=== PATIENT | male | born 1955 | race Caucasian/White ===

== ENCOUNTER 2019-08-28 12:08 | Outpatient (CLI) | payer BC, SELFPAY ==
--- NOTE | 2019-08-28 12:15 | ECHO_ITS ---
Patient Info Name: Binh Masters Age: 64 years : 1955 Gender: Male Ht: 72 in Wt: 270 lbs BSA: 2.54 m2 HR: 86 bpm BP: 169 / 96 mmHg Heart Rhythm: Sinus Rhythm Technical Quality: Fair Exam Date: 08/28/2019 12:20 PM Exam Location: [facility] Patient Status: Outpatient Admit Date: 08/28/2019 Staff Ordering Physician: Sigifredo Carter MD Meal Temperer: Mayda Fortune RDCS Attending Provider: Sigifredo Carter MD Referring Physician: Emma BROWN; Exam Type: CA echo doppler color flow Study Info Indications R01.1 - Cardiac murmur, unspecified Complete two-dimensional, color flow and Doppler transthoracic echocardiogram is performed. Strain analysis performed. History/Risk Factors Hypertension: Yes Dyslipidemia: Yes Congenital Heart Disease (CHD): No Peripheral Arterial Disease (PAD): No Myocardial Infarction (TN): No Chronic Lung Disease: No Obesity: Yes Renal Disease: No Coronary Artery Disease (CAD) No Congestive Heart Failure (CHF): No Cardiomyopathy/LV Systolic Dysfunction: No Diabetes Mellitus: No COPD: No Tobacco Use: Former Cerebrovascular Disease: No Family History: Coronary Artery Disease Deep Vein Thrombosis (DVT): None Dialysis: None Frailty Scale (CSHA): 3: Managing Well Cardiac Arrest: No Prior Interventions Pacemaker: No PCI: No CABG: No Valve Surgery: No ICD: No PV Intervention: None Heart Transplant: No Summary 1. Left ventricular chamber dimension is normal. 2. Left ventricular systolic function is normal, estimated at 55-60%. 3. Left ventricular septal wall motion is abnormal with septal motion related to bundle branch block. 4. The left ventricular diastolic function is grade I diastolic dysfunction. 5. E/e' 14 is mildly elevated. 6. Left atrial chamber dimension is mildly enlarged. 7. The aortic valve is not well visualized. 8. Cannot determine number of aortic valve leaflets. 9. There is mild aortic valve stenosis based on a peak velocity of 237 cm/s, mean gradient of 12 mmHg, and aortic valve area of 1.7 cm2. 10. There is severe aortic valve sclerosis. 11. There is mild aortic valve regurgitation. 12. There is trace mitral valve regurgitation. 13. There is trace pulmonic regurgitation. Left Ventricle E/e' 14 is mildly elevated. Left ventricular chamber dimension is normal. Left ventricular systolic function is normal, estimated at 55-60%. Left ventricular septal wall motion is abnormal with septal motion related to bundle branch block. The left ventricular diastolic function is grade I diastolic dysfunction. Right Ventricle Right ventricular chamber dimension is normal. Right ventricular systolic function is normal. Left Atria Left atrial chamber dimension is mildly enlarged. Right Atria Right atrial chamber dimension is normal. Aortic Valve There is mild aortic valve stenosis based on a peak velocity of 237 cm/s, mean gradient of 12 mmHg, and aortic valve area of 1.7 cm2. Cannot determine number of aortic valve leaflets. The aortic valve is not well visualized. There is severe aortic valve sclerosis. There is mild aortic valve regurgitation. Pulmonic Valve There is trace pulmonic regurgitation. Mitral Valve There is no mitral valve stenosis. There is trace mitral valve regurgitation. Tricuspid Valve There is no tricuspid valve regurgitation.
== END 2019-08-28 12:09 | disposition home or self-care (01) ==
LOC: CHSIMG 12:10
PROVIDERS: PCP Family Medicine; Visit Provider Family Medicine
DX: R01.1 Cardiac murmur, unspecified (principal)
CPT/HCPCS: 93306

== ENCOUNTER 2019-11-11 11:17 | Outpatient (CLI) | payer BC, SELFPAY ==
--- NOTE | ~2019-11-11 | XR_ITS ---
XR lumbar spine 2-3V DATE: 11/11/2019 11:44 INDICATION: Low back pain for 10 days, radiating to right leg TECHNIQUE: AP, lateral, coned lateral lumbosacral views COMPARISON: 09/11/2006 lumbar spine FINDINGS: There is degenerative spurring of the lower thoracic spine. There is degenerative spurring throughout the lumbar and lumbosacral spine. There is mild degenerativ e disc disease at L1-2, L2-3, moderate moderate degenerative disc disease at L3-4, mild degenerative disc disease at L4-5 and moderately severe degenerative disc disease and prominent anterior spurring at L5-S1. There is retrolisthesis at L5-S1. There is suspicion of primary spinal stenosis. Consider CT lumbar spine correlation. The sacroiliac joints appear normal. IMPRESSION: Multilevel degenerative disc disease, most pronounced at L5-S1 Primary spinal stenosis is suggested; consider CT lumbar spine correlation Reviewed, dictated and finalized at location A.
== END 2019-11-11 11:18 | disposition home or self-care (01) ==
PROVIDERS: PCP Family Medicine; Visit Provider Family Medicine
DX: M54.5 Low back pain (principal)
CPT/HCPCS: 72100

== ENCOUNTER 2019-11-20 13:36 | Outpatient (CLI) | payer BC, SELFPAY ==
--- NOTE | ~2019-11-20 | CT_ITS ---
EXAMINATION: CT [facility] EXAM DATE: 11/20/2019 14:19 INDICATION: Right leg weakness, low back pain. TECHNIQUE: Spiral CT of the lumbar spine was performed without contrast. Axial, coronal and sagittal images were reviewed. The dose-length product (DLP) for this examination was 1334.92 mGy-cm. The exposure was tailored according to patient size (auto mA exposure control), and iterative reconstruct ion (ASIR) was used as additional dose reduction technique. There is no prior study for comparison. FINDINGS: There is 5 mm retrolisthesis L5 on S1 with moderate loss of this disc height. The vertebral bodies are otherwise aligned. Mild to moderate disc disease at the other thoracolumbar levels. There are small to moderate-sized thoracolumbar endplate osteophytes. There are no acute fractures identif ied. No spondylolysis. Paraspinal soft tissue is unremarkable. Level by level evaluation: T12-L1: Disc does not extend beyond the endplate margin. Facet arthropathy: None. Neural foraminal stenosis: No stenosis. Central canal stenosis: No stenosis. L1-L2: There is a mild diffuse disc bulge. Facet arthropathy: Mild. Neural foraminal stenosis mild bilateral: No stenosis. Central canal stenosis: No stenosis. L2-L3: There is a mild diffuse disc bulge. Facet arthropathy: Mild. Neural foraminal stenosis: Mild to moderate bilateral. Central canal stenosis: Mild. L3-L4: There is a mild to moderate diffuse disc bulge. Facet arthropathy: Moderate. Neural foraminal stenosis: Mild to moderate bilateral. Central canal stenosis: Moderate. L4-L5: There is a mild to moderate diffuse disc bulge. Facet arthropathy: Moderate to severe. Neural foraminal stenosis: Moderate bilateral, right greater than left. Central canal stenosis: Moderate to severe. L5-S1: There is a mild to moderate diffuse disc bulge. Facet arthropathy: Moderate. Neural foraminal stenosis: Moderate to severe bilateral. Central canal stenosis: Moderate. IMPRESSION: 1. L4-5 moderate to severe central canal stenosis, moderate at the 2 contiguous levels. 2. L5-S1 grade 1 retrolisthesis. Reviewed, dictated and finalized at location A. IMPRESSION: 1. L4-5 moderate to severe central canal stenosis, moderate at the 2 contiguou s levels. 2. L5-S1 grade 1 retrolisthesis.
== END 2019-11-20 13:37 | disposition home or self-care (01) ==
LOC: CHSIMG 13:36
PROVIDERS: PCP Family Medicine; Visit Provider Family Medicine
DX: M54.5 Low back pain (principal)
CPT/HCPCS: 72131

== ENCOUNTER 2023-02-27 03:08 | Day surgery (SDC) | payer OTHER, SELFPAY ==
[2023-02-01 09:38] VITALS: BMI 36.6
--- NOTE | 2023-02-23 13:13 | SUR.PREOP ---
Patient called regarding upcoming procedure. Reviewed preop instructions, appointment times, and procedure prep.
[2023-02-27 07:13] VITALS: BP 156/91; PULSE 101; RESP 20; TEMP 36.1; O2SAT 97
[2023-02-27] MEDS: LACTATED RINGERS 1,000 ML 150 ML IV CONT (07:16)
--- NOTE | 2023-02-27 07:59 | WPDANESEPPF ---
Anes - Initial Pre Proc Eval Procedure: Operation Date: 02/27/23 08:30 Proposed Procedures p Screening Colonoscopy - Luis Daniel Barth MD Date/Time: 02/27/23 07:59 Surgeon: Luis Daniel Barth MD Pre Op Diagnosis: neoplasm screening Patient Data Age: 67 Gender: M Height: 1.83 m Weight: 127.9 kg Last Vital Signs Temp 97 F L 02/27/23 07:13 Pulse 101 H 02/27/23 07:13 Resp 20 02/27/23 07:13 BP 156/91 H 02/27/23 07:13 Pulse Ox 97 02/27/23 07:13 O2 Del Method Room Air 02/27/23 07:13 Allergies Allergy/AdvReac Type Severity Reaction Status Date / Time No Known Allergies Allergy Verified 02/27/23 07:12 Home Medications Medication Instructions Recorded Confirmed Type amlodipine 10 mg tablet 10 mg PO DAILY #90 tabs 10/03/22 02/27/23 Rx fenofibrate micronized 134 mg 134 mg PO DAILY #90 caps 10/03/22 02/27/23 Rx capsule hydrochlorothiazide 25 mg tablet 25 mg PO DAILY #90 tabs 10/03/22 02/27/23 Rx metoprolol succinate 50 mg 50 mg PO DAILY #90 tabs 10/03/22 02/27/23 Rx tablet,extended release 24 hr multivitamin with minerals 1 tablet PO DAILY 02/01/23 02/27/23 History Patient hx anesthesia problems: none Family hx anesthesia problems: none Results Review: All pre-operative results and documents have been reviewed as part of the pre-operative evaluation. COUNT INCLUDES THE [facility] Past Medical History Medical History Hypertension Family History Family History Father Hypertension Heart disease Mother Cancer Other Family history of malignant neoplasm of male breast Social History Social History Smoking status: Former smoker Tobacco type: cigarettes Smoking end date: 02/05/06 Alcohol intake: current Alcohol use details: Occasionally Substance use: unknown Substance use type: does not use Lack of Transportation: No Lack of Food: Never True Current Housing: I Have Housing Concerned About Future Housing: No Difficulty Paying Gas/Electric Bills: No Difficulty Paying for Meds: No Currently Unemployed: No Education: High School Diploma/GED Difficulty w/ Childcare or Family Care: No Living arrangements: other Additional living arrangements comments: with ana Denson Final PreProcedure Day of Procedure 02/27/23 07:59 Patient weight: normal Heart: regular rate and rhythm Lungs: clear to auscultation Airway: Mallampati scale class III Neurological: alert and oriented Last oral intake: >/= 8 hours ASA classification: III Emergent: no Anesthetic plan: proceed Anesthesia type and monitoring: general GIVS and standard monitoring Results Review: All pre-operative results and documents have been reviewed as part of the pre-operative evaluation. Informed Consent: The patient's anesthetic plan and its attendant risks and benefits were discussed with the patient/family/POA. Questions were solicited and answers provided to the satisfaction of the patient/family/POA.
--- NOTE | 2023-02-27 08:23 | PM.HPGS ---
History of Present Illness History of Present Illness Consent: Risks, benefits, and alternatives have been discussed and questions answered. Patient agrees to proceed with procedure. Chief complaint: neoplasm screening Narrative: Binh Masters is a 67 year old male here for screening colonoscopy, last one 10 years ago Review of Systems Constitutional: Constitutional: Denies headache(s) and Denies weakness Eyes: Eyes: Denies blurry vision ENT: Reports Normal hearing present, Denies headache(s) and Denies neck pain Cardiovascular: Cardiovascular: Denies chest pain and Denies dyspnea Respiratory: Respiratory: Denies dyspnea Gastrointestinal: Gastrointestinal: Reports no additional gastrointestinal complaints Genitourinary: Genitourinary: Denies dysuria Musculoskeletal: Musculoskeletal: Denies neck pain Integumentary/Breasts: Skin/Breast: Denies dry skin Neurologic: Reports Normal hearing present, Denies headache(s) and Denies weakness Psychiatric: Psychiatric: Denies anxiety Endocrine: Endocrine: Denies change in body appearance Hematologic/Lymphatic: Hematologic/Lymphatic: Denies easy bleeding Allergic/Immunologic: Allergic/Immunologic: Denies urticaria PMFSH Past Medical History Medical History (Updated 02/27/23 @ 08:24 by Luis Daniel Barth MD) Colon cancer screening Hypertension Family History Family History Father Hypertension Heart disease Mother Cancer Other Family history of malignant neoplasm of male breast Social History Social History Smoking status: Former smoker Tobacco type: cigarettes Smoking end date: 02/05/06 Alcohol intake: current Alcohol use details: Occasionally Substance use: unknown Substance use type: does not use Lack of Transportation: No Lack of Food: Never True Current Housing: I Have Housing Concerned About Future Housing: No Difficulty Paying Gas/Electric Bills: No Difficulty Paying for Meds: No Currently Unemployed: No Education: High School Diploma/GED Difficulty w/ Childcare or Family Care: No Living arrangements: other Additional living arrangements comments: with sp Meds Home Medications and Allergies Home Medications Medication Instructions Recorded Confirmed Type amlodipine 10 mg tablet 10 mg PO DAILY #90 tabs 10/03/22 02/27/23 Rx fenofibrate micronized 134 mg 134 mg PO DAILY #90 caps 10/03/22 02/27/23 Rx capsule hydrochlorothiazide 25 mg tablet 25 mg PO DAILY #90 tabs 10/03/22 02/27/23 Rx metoprolol succinate 50 mg 50 mg PO DAILY #90 tabs 10/03/22 02/27/23 Rx tablet,extended release 24 hr multivitamin with minerals 1 tablet PO DAILY 02/01/23 02/27/23 History Allergies Allergy/AdvReac Type Severity Reaction Status Date / Time No Known Allergies Allergy Verified 02/27/23 07:12 Vital Signs Vital Signs - 24 hr 02/27/23 07:13 Temperature 97 F L Pulse Rate 101 H Respiratory Rate 20 Blood Pressure 156/91 H Pulse Oximetry 97 Oxygen Delivery Room Air Exam Const: General: comfortable and no acute distress HENMT: Face/Nose/Sinus: Normal nares present Eyes: General: appearance normal, both eyes and all related structures Neck: Neck: no JVD Resp: Auscultation: clear to auscultation bilaterally Cardio: Rate: regular rate Rhythm: regular rhythm GI: Inspection: non-distended GI Palp: Yes Soft to palpation Skin: General skin exam: normal color Neuro: General: gait normal Speech: normal speech Extrem: General: normal to inspection Psych: Mental Status: mental status grossly normal Assessment and Plan Assessment and plan (1) Colon cancer screening: Code(s): Z12.11 - Encounter for screening for malignant neoplasm of colon Status: Acute Assessment and Plan: colonoscopy
[2023-02-27 08:50] VITALS: BP 116/65; PULSE 79; RESP 24; O2SAT 94
[2023-02-27 09:00] VITALS: BP 119/73; PULSE 74; RESP 24; O2SAT 94
[2023-02-27 09:10] VITALS: BP 121/75; PULSE 68; RESP 20; O2SAT 97
== END 2023-02-27 09:18 | disposition home or self-care (01) ==
PROVIDERS: PCP Physician Assistant; Visit Provider Internal Medicine Gastroenterology
PROC: 0DJD8ZZ Inspection of Lower Intestinal Tract, Via Natural or Artificial Opening Endoscopic (ICD-10-PCS; CPT 45378; principal; 2023-02-27 08:30)
DX: Z12.11 Encounter for screening for malignant neoplasm of colon (principal); D12.0 Benign neoplasm of cecum; D12.4 Benign neoplasm of descending colon; K63.5 Polyp of colon; K57.30 Diverticulosis of large intestine without perforation or abscess without bleeding; K64.8 Other hemorrhoids; I10 Essential (primary) hypertension; Z87.891 Personal history of nicotine dependence
CPT/HCPCS: 45385; 88305; J2704; J7120

== ENCOUNTER 2024-08-25 07:50 | Observation (INO) | payer OTHER, SELFPAY ==
[2024-08-25] VITALS (51 sets, daily range): BP systolic 100–157; BP diastolic 66–122; PULSE 58–156; RESP 12–36; TEMP 36.7–36.8; O2SAT 92–99; BMI 38.9
--- NOTE | 2024-08-25 | ECHO_ITS ---
Patient Info Name: Binh Masters Age: 68 years : 1955 Gender: Male Ht: 72 in Wt: 287 lbs BSA: 2.62 m2 HR: 106 bpm BP: 122 / 90 mmHg Heart Rhythm: Atrial Fibrillation, Tachycardia Technical Quality: Fair Exam Date: 08/25/2024 3:00 PM Patient Status: O Admit Date: 08/25/2024 Exam Type: CA echo dop color flow w con Complete two-dimensional, color flow and Doppler transthoracic echocardiogram is performed. Staff Referring Physician: Kayla Clay Customer Insight Analyst: Leti Andrews Attending Provider: Karri Ascencio MD Contrast/Agitated Saline Contrast/Ag. Saline: Definity Amount: 2.00 ml Administered By: Leti Andrews Existing IV Access: Yes IV Access Condition: patent with no signs of infiltration Summary 1. Technically difficult study. 2. Left ventricular chamber dimension is normal. 3. Left ventricular systolic function is moderately reduced, estimated at 30-35. LVEF appears to be moderately reduced, however, study was done during AFIB with RVR. 4. There is mildly increased left ventricular wall thickness. 5. Right ventricular systolic function is normal. 6. Left atrial chamber dimension is moderately enlarged. 7. Right atrial chamber dimension is moderately enlarged. 8. There is severe aortic valve calcification. 9. There is severe aortic valve stenosis with a peak velocity of 366 cm/s, mean gradient of 33 mmHg, and aortic valve area of 0.8 cm2. 10. There is mild aortic valve regurgitation. 11. There is mild mitral valve regurgitation. 12. There is mild tricuspid valve regurgitation. 13. The aortic root size at the sinus of Valsalva is mildly dilated. Left Ventricle Left ventricular chamber dimension is normal. Left ventricular systolic function is moderately reduced, estimated at 30-35. LVEF appears to be moderately reduced, however, study was done during AFIB with RVR. There is mildly increased left ventricular wall thickness. The left ventricular diastolic function is indeterminate. Right Ventricle Right ventricular chamber dimension is normal. Right ventricular systolic function is normal. Left Atria Left atrial chamber dimension is moderately enlarged. Right Atria Right atrial chamber dimension is moderately enlarged. Atrial Septum Intact interatrial septum visualized by color flow imaging. Aortic Valve The aortic valve is not well visualized. There is severe aortic valve stenosis with a peak velocity of 366 cm/s, mean gradient of 33 mmHg, and aortic valve area of 0.8 cm2. There is mild aortic valve regurgitation. There is severe aortic valve calcification. Pulmonic Valve The pulmonic valve is not well visualized. Mitral Valve There is mild mitral valve regurgitation. Tricuspid Valve There is mild tricuspid valve regurgitation. Pericardium/Pleural There is no pericardial effusion. Inferior Vena Cava Inferior vena cava is not well visualized. Aorta The aortic root size at the sinus of Valsalva is mildly dilated. Left Ventricular Outflow Tract Name Value Normal LVOT 2D LVOT Diameter 1.8 cm LVOT Doppler LVOT Peak Velocity 109 cm/s LVOT Peak Gradient 3 mmHg LVOT Mean Gradient 2 mmHg LVOT VTI 24 cm LVOT VTI/AV VTI Ratio 0.3 LVOT Stroke Volume 61 ml LVOT CO 6.0 l/min LVOT CI 2.3 l/min/m2 Mitral Valve Name Value Normal MV Doppler MV Peak Gradient 6 mmHg MV Mean Gradient 2 mmHg MV Area (Cont Eq VTI) 2.3 cm2 MV Regurgitation Doppler MR Peak Gradient 97 mmHg Tricuspid Valve Name Value Normal TV Regurgitation Doppler TR Peak Velocity 272 cm/s TR Peak Gradient 30 mmHg Estimated PAP/RSVP RV Systolic Pressure 40 mmHg <36 TV Annular TDI TV Lateral Cele s' Velocity 8.8 cm/s >=9.5 Aortic Valve Name Value Normal AV Doppler AV Peak Velocity 366 cm/s AV Peak Gradient 54 mmHg AV Mean Gradient 33 mmHg AV VTI 77 cm AV Area (Cont Eq VTI) 0.8 cm2 >=3.0 AV Area (Cont Eq Henri) 0.7 cm2 AV DI (Henri) 0.30 AV Regurgitation 2D LVOT Area 2.5 cm2 Ventricles Name Value Normal LV Dimensions 2D/MM LVOT Diameter 1.8 cm Atria Name Value Normal LA Dimensions LA Volume (4C A-L) 103 ml LA Volume (BP A-L) 120 ml RA Dimensions RA Systolic Major Melrude Length (4C) 6.2 cm 2.1-2.7 RA Area (4C) 24.4 cm2 <=18.0 Report Signatures
--- NOTE | ~2024-08-25 | XR_ITS ---
EXAMINATION: XR chest 1V portable 08/25/2024 08:46 INDICATION: Shortness of breath. A. fib. PROCEDURE: AP portable chest COMPARISON: No prior studies for comparison. FINDINGS: The lungs are clear. The cardiomediastinal silhouette is within normal limits. There are no pleural effusions. There is no pneumothorax suspected. IMPRESSION: 1: NO ACUTE CARDIOPULMONARY DISEASE. Reviewed, dictated and finalized at location A.
--- OUTSIDE RECORDS SUMMARY | 2024-08-25 07:53 | XMS_ITS | Clinical Summary ---
Author Organization [facility] Address [address] [place] [phone] Care Team Providers Care Risk Compliance Analyst Name Role Phone Pablo Dunn Primary Care Provider Allergies No known active allergies Medications amLODIPine (NORVASC) 10 mg tablet Take 1 tablet (10 mg total) by mouth every morning Active metoprolol XL (TOPROL-XL) 50 mg extended release tablet Take 1 tablet (50 mg total) by mouth every morning Active hydroCHLOROthiaz bryce (HYDRODIURIL) 25 mg tablet Take 1 tablet (25 mg total) by mouth every morning Active fenofibrate choline (TRILIPIX) 135 mg capsule Take 1 capsule (135 mg total) by mouth 2 (two) times a week Sunday and mornings 2 Active omega 1-fkv-ncl-fish oil 1,000 mg (120 mg-180 mg) capsule Take 1 capsule (1,000 mg total) by mouth every morning Active ascorbic acid (VITAMIN C) 500 mg tablet,chewable Take 1 tablet/chew tab (500 mg total) by mouth every morning Active multivit-min/fol ic/vit K/lycop (MEN'S 50 PLUS MULTIVITAMIN ORAL) Take 1 tablet by mouth every morning Active oxyCODONE (ROXICODONE) 5 mg immediate release tabletIndication s:Pain Take 1 tablet (5 mg total) by mouth every 4 (four) hours as needed for pain 42 tablet 3 Active Additional Information Patient not taking.Reported on 10/19/2022 acetaminophen 500 mg capsule Take 2 capsules (1,000 mg total) by mouth every 6 (six) hours 30 tablet 3 Active Additional Information Patient not taking.Reported on 10/19/2022 cyclobenzaprine (FLEXERIL) 5 mg tablet Take 1 tablet (5 mg total) by mouth 3 (three) times a day as needed for muscle spasms 90 tablet 3 Active Additional Information Patient not taking.Reported on 10/19/2022 polyethylene glycol (MIRALAX) 17 gram packetIndication s:constipation Take 1 packet (17 g total) by mouth daily 3 Active Additional Information Patient not taking.Reported on 10/19/2022 senna-docusate (PERICOLACE) 8.6-50 mgIndications:co nstipation Take 2 tablets by mouth 2 (two) times a day 120 tablet 3 Active Additional Information Patient not taking.Reported on 10/19/2022 fenofibrate micronized (LOFIBRA) 134 mg capsule Take 1 capsule (134 mg total) by mouth daily 3 Active Active Problems Problem Noted Date Diagnosed Date Degenerative lumbar spinal stenosis 06/05/2022 Foot drop, unspecified laterality 05/30/2022 Lumbar radiculopathy 12/23/2021 Intervertebral disc disorder with radiculopathy of lumbar region 11/28/2021 Overview (11/28/2021): Added automatically from request for surgery [id number] Right foot drop 09/21/2021 Osteoarthritis 09/21/2021 Pain in limb 09/21/2021 Aortic stenosis 11/02/2020 Hyperlipidemia 11/02/2020 Hypertension 11/02/2020 Obesity 11/02/2020 Immunizations Immunization Administration Dates Next Due Influenza, Quadrivalent, Hig h Dose, Preservative Free, Intrr 12/24/2021 Surgical History Surgery Date Site/Laterality Comments REPLACEMENT TOTAL KNEE 02/06/2020 - 02/04/2021 Left Medical History Medical History Date Comments Cervical stenosis (uterine cervix) Hypertension Lumbar stenosis Family History Medical History Relation Name Comments Heart disease Father Cancer Mother Relation Name Status Comments Father Mother Social History Tobacco Use Types Packs/Day Years Used Date Smoking Tobacco: Former Cigarettes 2 30 1 979 - 2009 Smokeless Tobacco: Former Chew Quit: 09/2020 Tobacco Cessation:Counseling Given: No AUDIT-C Answer Date Recorded Q1: How often do you have a drink containing alc ohol? 2-4 times a month 10/19/2022 Q2: How many drinks containi ng alcohol do you have on a typical day when you are drinking? 1 or 2 10/19/2022 Q3: How often do you have si x or more drinks on one occasion? Never 10/19/2022 Personal Safety Answer Date Recorded Have you ever been in or are you currently in a harmful physical or emotional relationship or is someone making you feel afraid or unsafe? 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 Gender Identity Not on file Sexual Orientation Not on file Occupation Industry Job Start Date Job End Date Retired Not on file Not on file Not on file Obstetrics History Last Filed Vital Signs Vital Sign Reading Time Taken Comments Blood Pressure 153/87 10/19/2022 1:31 PM CDT Pulse 80 10/19/2022 1:31 PM CDT Temperature 36.6 C (97.8 F) 06/06/2022 11:05 AM CDT Respiratory Rate 18 06/06/2022 11:05 AM CDT Oxygen Saturation 94% 06/06/2022 11:05 AM CDT Inhaled Oxygen Concentration - - Weight 127.9 kg (282 lb) 10/19/2022 1:31 PM CDT Height 182.9 cm (6') 10/19/2022 1:31 PM CDT Body Mass Index 38.25 10/19/2022 1:31 PM CDT Plan of Treatment Health Maintenance Due Date Last Done Comments Colon Cancer Screening-Colonoscopy 1955 Depression Screening 1955 Hepatitis C Screening 1955 Prostate Cancer Screening-PSA 1956 DTaP/Tdap/Td Vaccine (1 - Tdap) 08/29/1967 Hepatitis B Screening 1974 Pneumococcal vaccine 65+ (1 of 1 - PCV) 2006 Zoster Vaccine (1 of 2) 2006 Abdominal Aortic Aneurysm (AAA) Screen 2021 Well Visit 65+ 2021 Fall Risk Assessment 06/07/2023 06/06/2022 Influenza Vaccine (Season Ended) 2024 12/25/19 22 Medical Devices Implanted Type Area Verifier Operator Device Identifier Shelf Expiration Date Model / Serial / Lot Knee Replacement Knee Gl[employer] Creo 6.5mm 50mm Cannulated Modular Spine Screw Bone 1067.4650 - [id number] - [id number] Implanted:Qty: 2 on 12/23/2021 by Daron Russell MD PhD at [facility] N/A: Spine Lumbar [employer] 12/23/2021 1067.4650 / 1067.4650 / Gl[employer] Medical 1134.706 Creo Mis 5.5mm 60mm Curve Maciej Spinal Titanium - S1134.7060 - [id number] Implanted:Qty: 2 on 12/23/2021 by Daron Russell MD PhD at [facility] N/A: Spine Lumbar [employer] 12/23/2021 1134.7060 / 1134.7060 / Medtronic Inc Bmp Infuse Sm [id number] - [id number] - [id number] Implanted:Qty: 1 on 12/23/2021 by Daron Russell MD PhD at [facility] N/A: Spine Lumbar Medtronic Inc 02/05/2024 [id number] / [id number] / [id number] Bioventus Osteoamp Select Flowable 2.5cc [facility]-025 - [id number] - [id number] Implanted:Qty: 1 on 12/23/2021 by Daron Russell MD PhD at [facility] N/A: Spine Lumbar BIOVENTUS 07/27/2024 [facility]-025 / [id number] / [id number] Gl[employer] Medical Spacer Hedron Ia [id number] 17mm 20deg 1212.1317s - S1212.1317s - [id number] Implanted:Qty: 1 on 12/23/2021 by Daron Russell MD PhD at [facility] N/A: Spine Lumbar [employer] 12/23/2021 1212.1317S / 1212.1317S / Gl[employer] 25mm Lumbar Willow Spinal Mis 1135.0025 - S1135.0025 - [id number] Implanted:Qty: 3 on 12/23/2021 by Daron Russell MD PhD at [facility] N/A: Spine Lumbar [employer] 12/23/2021 1135.0025 / 1135.0025 / [employer] 1134.001 Creo Spinal Cap Locking Nonsterile Mis - S1134.0010 - [id number] Implanted:Qty: 4 on 12/23/2021 by Daron Russell MD PhD at [facility] N/A: Spine Lumbar [employer] 12/23/2021 1134.0010 / 1134.0010 / [employer] 1134.01 Creo Mis 30mm Modular Polyaxial Tulip Head Screw Bone - S1134.0100 - [id number] Implanted:Qty: 4 on 12/23/2021 by Daron Russell MD PhD at [facility] N/A: Spine Lumbar [employer] 12/23/2021 1134.0100 / 1134.0100 / [employer] Creo Amp 6.5mm 45mm Cannulated Modular Spine Screw Bone 1067.4645 - S1067.4645 - [id number] Implanted:Qty: 2 on 12/23/2021 by Daron Russell MD PhD at [facility] N/A: Spine Lumbar [employer] 12/23/2021 1067.4645 / 1067.4645 / [employer] Creo Amp 6.5mm 45mm Cannulated Modular Spine Screw Bone 1067.4645 - [id number] Implanted:Qty: 2 on 06/05/2022 by Daron Russell MD PhD at [facility] N/A: Spine Lumbar [employer] 1067.4645 / / [employer] Creo 7.5mm 50mm Cannulated Modular Spine Screw Bone 1067.4750 - [id number] Implanted:Qty: 1 on 06/05/2022 by Daron Russell MD PhD at [facility] N/A: Spine Lumbar [employer] 1067.4750 / / [employer] 1134.706 Creo Mis 5.5mm 60mm Curve Maciej Spinal Titanium - [id number] Implanted:Qty: 2 on 06/05/2022 by Daron Russell MD PhD at [facility] N/A: Spine Lumbar [employer] 1134.7060 / / [employer] 1134.001 Creo Spinal Cap Locking Nonsterile Mis - [id number] Implanted:Qty: 4 on 06/05/2022 by Daron Russell MD PhD at [facility] N/A: Spine Lumbar [employer] 1134.0010 / / [employer] 1134.01 Creo Mis 30mm Modular Polyaxial Tulip Head Screw Bone - [id number] Implanted:Qty: 4 on 06/05/2022 by Daron Russell MD PhD at [facility] N/A: Spine Lumbar [employer] 1134.0100 / / Explanted Type Area Verifier Operator Device Identifier Shelf Expiration Date Model / Serial / Lot Gl[employer] Rey 1.6mm 500mm Blunt Wire Fixation Nitinol 685.007 - S685.007 - [id number] Explanted:Qty: 4 on 12/23/2021 at [facility] N/A: Spine Lumbar [employer] 12/23/2021 685.007 / 685.007 / [employer] Rey 1.6mm 500mm Blunt Wire Fixation Nitinol 685.007 - [id number] Explanted:Qty: 4 on 06/05/2022 by Daron Russell MD PhD at [facility] N/A: Spine Lumbar [employer] 685.007 / / Description:Temporarily plac ed Insurance [facility] Advance Directives For more information, please contact: [phone] * Full Code (Latest Code Status on File) Date Activated Date Inactivated Comments 06/05/2022 1:19 PM 06/06/2022 4:07 PM * Full Code Date Activated Date Inactivated Comments 12/23/2021 6:20 PM 12/26/2021 12:49 AM Care Teams Risk Compliance Analyst Relationship Specialty Start Date End Date Pablo Dunn PA [address] [facility] [address] [place] [address] PCP - General Physician Edge Stainer Machine 08/23/21
--- OUTSIDE RECORDS SUMMARY | 2024-08-25 07:53 | XMS_ITS | Clinical Summary ---
Author Organization [facility] Address [address] [place] [address] Care Team Providers Care Primary Care Sales Representative Name Role Phone Unavailable Primary Care Provider Unavailabl e Social History Tobacco Use Types Packs/Day Years Used Date Smoking Tobacco: Never Assessed Sex and Gender Information Value Date Recorded Sex Assigned at Not on file Legal Sex Male 7:54 PM CDT Gender Identity Not on file Sexual Orientation Not on file Plan of Treatment Health Maintenance Due Date Last Done Comments Colorectal Cancer Screening Colonoscopy (10 Years) 1956 Hepatitis C 1974 DTaP, Tdap and Td Vaccines ( 1 - Tdap) 08/29/1975 Pneumococcal Vaccine: 50+ Ye ars (1 of 1 - PCV) 2006 Zoster Vaccines (1 of 2) 2006 COVID-19 Vaccine ( - 2023-2 5 season) 2023 RSV Immunization or 60+ Years (1 - 1-dose 75+ series) 08/29/2031 Meningococcal B Vaccine Aged Out No l onger eligible based on patient's age to complete this topic Meningococcal Vaccine Aged Out No gabi joie eligible based on patient's age to complete this topic RSV Immunizations Under 20 Months Aged Out No longer eligible based on patient's age to complete this topic
--- OUTSIDE RECORDS SUMMARY | 2024-08-25 07:53 | XMS_ITS | Referral Summary ---
Author Organization [facility] Address [address] [place] [phone] Care Team Providers Care Senior Product Engineer Name Role Phone Pablo Dunn Primary Care [...] week Sunday and mornings 2 Active omega 4-bol-pnh-fish oil 1,000 mg (120 mg-180 mg) capsule [...] (11/28/2021): Added automatically from request for surgery [id number] Right foot drop 09/21/2021 Osteoarthritis 09/21/2021 Pain in limb 09/21/2021 Aortic stenosis 11/02/2020 Hyperlipidemia 11/02/2020 Hypertension 11/02/2020 Obesity 11/02/2020 Immunizations Immunization Administration Dates Next Due Influenza, Quadrivalent, Hig h Dose, Preservative Free, Intrr 12/24/2021 Social History Tobacco Use Types Packs/Day Years Used Date Smoking Tobacco: Former Cigarettes 2 30 1 979 - 2008 Smokeless Tobacco: Former Chew Quit: 09/2020 Tobacco [...] on file 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 Gender Identity Not on file Sexual Orientation Not on file Occupation Industry Job Start Date Job End Date Retired Not on file Not on file Not on file Last Filed Vital Signs Vital Sign Reading [...] 10/19/2022 1:31 PM CDT Plan of Treatment Not on file Medical Devices Implanted Type Area Record Tabulating Clerk Device Identifier Shelf Expiration Date Model / Serial / Lot Knee Replacement Knee Gl[employer] Creo 6.5mm 50mm Cannulated Modular Spine Screw Bone 1067.4650 - S1067.4650 - [id number] Implanted:Qty: 2 on 12/23/2021 by Daron Russell MD PhD at [facility] N/A: Spine Lumbar [employer] 12/23/2021 1067.4650 / 1067.4650 / Gl[employer] 1134.706 Creo Mis 5.5mm 60mm Curve Maciej Spinal Titanium - S1134.7060 - [id number] Implanted:Qty: 2 on 12/23/2021 by Daron Russell MD PhD at [facility] N/A: Spine Lumbar [employer] 12/23/2021 1134.7060 / 1134.7060 / Medtronic Inc Bmp Infuse Sm [id number] - [id number] - [id number] Implanted:Qty: 1 on 12/23/2021 by Daron Russell MD PhD at [facility] N/A: Spine Lumbar Medtronic Inc 02/05/2024 9690181 / [id number] / [id number] Bioventus Osteoamp Select Flowable 2.5cc [facility]-025 - [id number] - [id number] Implanted:Qty: 1 on 12/23/2021 by Daron Russell MD PhD at [facility] N/A: Spine Lumbar BIOVENTUS 07/27/2024 [facility]-025 / [id number] / [id number] Glob[employer] Medical Spacer Hedron Ia [id number] 17mm 20deg 1212.1317s - S1212.1317s - [id number] Implanted:Qty: 1 on 12/23/2021 by Daron Russell MD PhD at [facility] N/A: Spine Lumbar [employer] 12/23/2021 1212.1317S / 1212.1317S / Gl[employer] Medical 25mm Lumbar [place] Spinal Mis 1135.0025 - S1135.0025 - [id number] Implanted:Qty: 3 on 12/23/2021 by Daron Russell MD PhD at [facility] N/A: Spine Lumbar [employer] 12/23/2021 1135.0025 / 1135.0025 / Gl[employer] 1134.001 Creo Spinal Cap Locking Nonsterile Mis - S1134.0010 - [id number] Implanted:Qty: 4 on 12/23/2021 by Daron Russell MD PhD at [facility] N/A: Spine Lumbar [employer] 12/23/2021 1134.0010 / 1134.0010 / Gl[employer] 1134.01 Creo Mis 30mm Modular Polyaxial Tulip Head Screw Bone - S1134.0100 - [id number] Implanted:Qty: 4 on 12/23/2021 by Daron Russell MD PhD at [facility] N/A: Spine Lumbar [employer] 12/23/2021 1134.0100 / 1134.0100 / Gl[employer] Creo Amp 6.5mm 45mm Cannulated Modular Spine Screw Bone 1067.4645 - S1067.4645 - [id number] Implanted:Qty: 2 on 12/23/2021 by Daron Russell MD PhD at [facility] N/A: Spine Lumbar [employer] 12/23/2021 1067.4645 / 1067.4645 / Gl[employer] Creo Amp 6.5mm 45mm Cannulated Modular Spine Screw Bone 1067.4645 - [id number] Implanted:Qty: 2 on 06/05/2022 by Daron Russell MD PhD at [facility] N/A: Spine Lumbar [employer] 1067.4645 / / Gl[employer] Creo 7.5mm 50mm Cannulated Modular Spine Screw Bone 1067.4750 - [id number] Implanted:Qty: 1 on 06/05/2022 by Daron Russell MD PhD at [facility] N/A: Spine Lumbar [employer] 1067.4750 / / [employer] 1134.706 Creo Mis 5.5mm 60mm Curve Maciej Spinal Titanium - [id number] Implanted:Qty: 2 on 06/05/2022 by Daron Russell MD PhD at [facility] N/A: Spine Lumbar [employer] 1134.7060 / / [employer] 1134.001 Creo Spinal Cap Locking Nonsterile Mis - [id number] Implanted:Qty: 4 on 06/05/2022 by Daron Russell MD PhD at [facility] N/A: Spine Lumbar [employer] 1134.0010 / / [employer] 1134.01 Creo Mis 30mm Modular Polyaxial Tulip Head Screw Bone - [id number] Implanted:Qty: 4 on 06/05/2022 by Daron Russell MD PhD at [facility] N/A: Spine Lumbar [employer] 1134.0100 / / Explanted Type Area Record Tabulating Clerk Device Identifier Shelf Expiration Date Model / Serial / Lot Gl[employer] Rey 1.6mm 500mm Blunt Wire Fixation Nitinol 685.007 - S685.007 - [id number] Explanted:Qty: 4 on 12/23/2021 at [facility] N/A: Spine Lumbar [employer] 12/23/2021 685.007 / 685.007 / [employer] Rey 1.6mm 500mm Blunt Wire Fixation Nitinol 685.007 - [id number] Explanted:Qty: 4 on 06/05/2022 by Daron Russell MD PhD at [facility] N/A: Spine Lumbar [employer] 685.007 / / Description:Temporarily plac ed Insurance [employer] [place] [facility] Advance Directives For more information, please contact: [phone] * Full Code (Latest Code Status on File) Date Activated Date Inactivated Comments 06/05/2022 1:19 PM 06/06/2022 4:07 PM * Full Code Date Activated Date Inactivated Comments 12/23/2021 6:20 PM 12/26/2021 12:49 AM Care Teams Senior Product Engineer Relationship Specialty Start Date End Date Pablo Dunn PA [address] [place] [address] PCP - General Physician Social Science Research Assistant 08/23/21
--- NOTE | 2024-08-25 07:57 | ECG_ITS ---
Test Date: 2024-08-25 07:56:54 Measurements Intervals [place] Rate: 145 P: 0 [place]: 0 QRS: 12 QRSD: 104 T: 22 QT: 286 QTc: 445 Interpretive Statements ATRIAL FIBRILLATION WITH RAPID VENTRICULAR RESPONSE NONSPECIFIC ST & T-WAVE ABNORMALITY ABNORMAL RHYTHM ECG No previous ECG available for comparison Electronically Signed On 08-25-2024 11:25:35 CDT by Vamsi Avendano M.D.
[2024-08-25 08:19] LABS: Hematocrit 45.4 % (42.0-52.0); Hemoglobin 15.7 g/dL (14.0-18.0); Immature Granulocyte Percent A 0.3 % (0-0.5); Lymphocytes Absolute Auto 1.36 K/mm3 (0.9-3.2); Mean Corpuscular HGB Conc 34.6 g/dl (32-36); Mean Corpuscular Hemoglobin 32.6 pg (26-34); Mean Corpuscular Volume 94.4 fl (80-100); Nucleated Red Blood Cells Absolute Auto 0.000 K/mm3 (0.0-0.012); Nucleated Red Blood Cells Perc 0.0 % (0.0-0.2); Platelet Count Result 170 k/mm3 (150-375); Red Blood Count 4.81 M/mm3 (4.6-6.20); White Blood Count 7.0 K/mm3 (4.5-10.0)
--- OUTSIDE RECORDS SUMMARY | 2024-08-25 08:27 | XMS_ITS | Continuity of Care Document ---
Author Organization [facility] [place] [address] [place] [address] [address] [place] [address] Phone Care Team Providers Care Family Assistant Name Role Phone Gabby Tran Unavailable Unavailable Procedures Procedure Date Eye Exam, New Patient Advance Directives Directive Yes / No Effective Date File Name No Information Encounters Encounter Description Practice Location Reason(s) For Visit Diagnoses Date Provider Providers Copied on Encounter [facility], [address] [place] [address] [address], [place], [place], [id number], tel:[phone] [facility] No Information [address] , [address], [place], [address], [place]. tel:[phone] Referring Provider: Alicia Lim MD, [address] [facility] [place], [address]. tel:[phone] Family History Family Member Type Diagnosis Age At Onset No Information Payers Payer name Insurance type Covered libertarian ID Authoriza tion(s) No Information Social History Type Description Quantity Date Captured Comments Sex Male Smoking Status No Information Chief Complaint And Reason For Visit No Information Reason For Referral Reason For Referral No Information History Of Present Illness Encounter Date Complaint History Of Prese nt Illness No Information Functional Status Date Functional Assessmen t No Information Instructions Date Instruction Additional Infor mation No Information Assessments Type Assessment Date No Information Patient Care Teams Name Effective Dates (start - stop) Status Members No Information
--- OUTSIDE RECORDS SUMMARY | 2024-08-25 08:27 | XMS_ITS | Referral Summary ---
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 Gender Identity Not on file Sexual Orientation [...] on file Medical Devices Implanted Type Area Social Media Project Manager Device Identifier Shelf Expiration Date Model / Serial / Lot Knee Replacement Knee [employer] Creo 6.5mm 50mm Cannulated Modular Spine Screw Bone 1067.4650 - S1067.4650 - [id number] Implanted:Qty: 2 on 12/23/2021 by Daron Russell MD PhD at [facility] N/A: Spine Lumbar [employer] 12/23/2021 1067.4650 / 1067.4650 / Gl[employer] Medical 1134.706 Creo Mis 5.5mm 60mm Curve Maciej Spinal Titanium - S1134.7060 - [id number] Implanted:Qty: 2 on 12/23/2021 by Daron Russell MD PhD at [facility] N/A: Spine Lumbar [employer] 12/23/2021 1134.7060 / 1134.7060 / Medtronic Inc Bmp Infuse Sm [id number] - [id number] - [id number] Implanted:Qty: 1 on 12/23/2021 by Daron Russell MD PhD at [facility] N/A: Spine Lumbar Medtronic Inc 02/05/2024 [id number] / [id number] / [id number] Bioventus Osteoamp Select Flowable 2.5cc [facility]-025 - [id number] - [id number] Implanted:Qty: 1 on 12/23/2021 by Daron Russell MD PhD at [facility] N/A: Spine Lumbar BIOVENTUS 07/27/2024 [facility]-025 / [id number] / [id number] Gl[employer] Medical Spacer Hedron Ia [id number] 17mm 20deg 1212.1317s - S1212.1317s - [id number] Implanted:Qty: 1 on 12/23/2021 by Daron Russell MD PhD at [facility] N/A: Spine Lumbar [employer] 12/23/2021 1212.1317S / 1212.1317S / [employer] 25mm Lumbar [place] Spinal Mis 1135.0025 - S1135.0025 - [id number] Implanted:Qty: 3 on 12/23/2021 by Daron Russell MD PhD at [facility] N/A: Spine Lumbar [employer] 12/23/2021 1135.0025 / 1135.0025 / [employer] 1134.001 Creo Spinal Cap Locking Nonsterile Mis - S1134.0010 - [id number] Implanted:Qty: 4 on 12/23/2021 by Daron Russell MD PhD at [facility] N/A: Spine Lumbar [employer] 12/23/2021 1134.0010 / 1134.0010 / [employer] 1134.01 Creo Mis 30mm Modular Polyaxial [place] Head Screw Bone - S1134.0100 - [id number] Implanted:Qty: 4 on 12/23/2021 by Daron Russell MD PhD at [facility] N/A: Spine Lumbar [employer] 12/23/2021 1134.0100 / 1134.0100 / [employer] Creo Amp 6.5mm 45mm Cannulated Modular Spine Screw Bone 1067.4645 - S1067.4645 - [id number] Implanted:Qty: 2 on 12/23/2021 by Daron Russell MD PhD at [facility] N/A: Spine Lumbar [employer] 12/23/2021 1067.4645 / 1067.4645 / [employer] Creo Amp 6.5mm 45mm Cannulated Modular Spine Screw Bone 1067.4645 - [id number] Implanted:Qty: 2 on 06/05/2022 by Daron Russell MD PhD at [facility] N/A: Spine Lumbar [employer] 1067.4645 / / [employer] Creo 7.5mm 50mm Cannulated Modular Spine Screw Bone 1067.4750 - [id number] Implanted:Qty: 1 on 06/05/2022 by Daron Russell MD PhD at [facility] N/A: Spine Lumbar [employer] 1067.4750 / / [employer] 1134.706 Creo Mis 5.5mm 60mm Curve Maciej Spinal Titanium - [id number] Implanted:Qty: 2 on 06/05/2022 by Daron Russell MD PhD at [facility] N/A: Spine Lumbar [employer] 1134.7060 / / [employer] 1134.001 Creo Spinal Cap Locking Nonsterile Mis - [id number] Implanted:Qty: 4 on 06/05/2022 by Daron Russell MD PhD at [facility] N/A: Spine Lumbar [employer] 1134.0010 / / [employer] 1134.01 Creo Mis 30mm Modular Polyaxial Tulip Head Screw Bone - [id number] Implanted:Qty: 4 on 06/05/2022 by Daron Russell MD PhD at [facility] N/A: Spine Lumbar [employer] 1134.0100 / / Explanted Type Area Social Media Project Manager Device Identifier Shelf Expiration Date Model / Serial / Lot Gl[employer] Ery 1.6mm 500mm Blunt Wire Fixation Nitinol 685.007 - S685.007 - [id number] Explanted:Qty: 4 on 12/23/2021 at [facility] N/A: Spine Lumbar [employer] 12/23/2021 685.007 / 685.007 / [employer] Rey 1.6mm 500mm Blunt Wire Fixation Nitinol 685.007 - [id number] Explanted:Qty: 4 on 06/05/2022 by Daron Russell MD PhD at [facility] N/A: Spine Lumbar [employer] 685.007 / / Description:Temporarily plac ed Insurance Needl [place] [facility] Advance Directives For more information, please contact: [phone] * Full Code (Latest Code Status on File) Date Activated Date Inactivated Comments 06/05/2022 1:19 PM 06/06/2022 4:07 PM * Full Code Date Activated Date Inactivated Comments 12/23/2021 6:20 PM 12/26/2021 12:49 AM Care Teams Director Product Management Relationship Specialty Start Date End Date Pablo Dunn PA [address] [place] [address] PCP - General Physician Mobility Developer 08/23/21
--- OUTSIDE RECORDS SUMMARY | 2024-08-25 08:27 | XMS_ITS | Clinical Summary ---
Author Organization [facility] Address [address] [place] [id number] Care Team Providers Care Marketing Finance Specialist Name Role Phone Unavailable Primary Care Provider [...]
--- OUTSIDE RECORDS SUMMARY | 2024-08-25 08:27 | XMS_ITS | Clinical Summary ---
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 Gender Identity Not on file Sexual Orientation [...] 12/25/19 22 Medical Devices Implanted Type Area Stonemason Supervisor Device Identifier Shelf Expiration Date Model / Serial / Lot Knee Replacement Knee [employer] Creo 6.5mm 50mm Cannulated Modular Spine Screw Bone 1067.4650 - S1067.4650 - [id number] Implanted:Qty: 2 on 12/23/2021 by Daron Russell MD PhD at [facility] N/A: Spine Lumbar [employer] 12/23/2021 1067.4650 / 1067.4650 / [employer] 1134.706 Creo Mis 5.5mm 60mm Curve Maciej Spinal Titanium - S1134.7060 - [id number] Implanted:Qty: 2 on 12/23/2021 by Daron Russell MD PhD at [facility] N/A: Spine Lumbar [employer] 12/23/2021 1134.7060 / 1134.7060 / Medtronic Inc Bmp Infuse Sm [id number] - [id number] - [id number] Implanted:Qty: 1 on 12/23/2021 by Daron Russell MD PhD at [facility] N/A: Spine Lumbar Medtronic Inc 02/05/2024 2017508 / [id number] / [id number] Bioventus Osteoamp Select Flowable 2.5cc [facility]-025 - [id number] - [id number] Implanted:Qty: 1 on 12/23/2021 by Daron Russell MD PhD at [facility] N/A: Spine Lumbar BIOVENTUS 07/27/2024 [facility]-025 / [id number] / [id number] Gl[employer] Spacer Hedron Ia [id number] 17mm 20deg 1212.1317s - S1212.1317s - [id number] Implanted:Qty: 1 on 12/23/2021 by Daron Russell MD PhD at [facility] N/A: Spine Lumbar [employer] 12/23/2021 1212.1317S / 1212.1317S / Gl[employer] Medical 25mm Lumbar [place] Spinal Mis 1135.0025 - S1135.0025 - [id number] Implanted:Qty: 3 on 12/23/2021 by Daron Russell MD PhD at [facility] N/A: Spine Lumbar [employer] 12/23/2021 1135.0025 / 1135.0025 / [employer] 1134.001 Creo Spinal Cap Locking Nonsterile Mis - S1134.0010 - [id number] Implanted:Qty: 4 on 12/23/2021 by Daron Russell MD PhD at [facility] N/A: Spine Lumbar [employer] 12/23/2021 1134.0010 / 1134.0010 / [employer] 1134.01 Creo Mis 30mm Modular Polyaxial Tulip Head Screw Bone - S1134.0100 - [id number] Implanted:Qty: 4 on 12/23/2021 by Daron Russell MD PhD at [facility] N/A: Spine Lumbar [employer] 12/23/2021 1134.0100 / 1134.0100 / [employer] Creo Amp 6.5mm 45mm Cannulated Modular Spine Screw Bone 1067.4645 - S1067.4645 - [id number] Implanted:Qty: 2 on 12/23/2021 by Daron Russell MD PhD at [facility] N/A: Spine Lumbar [employer] 12/23/2021 1067.4645 / 1067.4645 / [employer] Creo Amp 6.5mm 45mm Cannulated Modular Spine Screw Bone 1067.4645 - [id number] Implanted:Qty: 2 on 06/05/2022 by Daron Russell MD PhD at [facility] N/A: Spine Lumbar [employer] 1067.4645 / / [employer] Creo 7.5mm 50mm Cannulated Modular Spine Screw Bone 1067.4750 - [id number] Implanted:Qty: 1 on 06/05/2022 by Daron Russell MD PhD at [facility] N/A: Spine Lumbar [employer] 1067.4750 / / [employer] 1134.706 Creo Mis 5.5mm 60mm Curve Maciej Spinal Titanium - [id number] Implanted:Qty: 2 on 06/05/2022 by Daron Russell MD PhD at [facility] N/A: Spine Lumbar [employer] 1134.7060 / / [employer] 1134.001 Creo Spinal Cap Locking Nonsterile Mis - [id number] Implanted:Qty: 4 on 06/05/2022 by Daron Russell MD PhD at [facility] N/A: Spine Lumbar [employer] 1134.0010 / / Gl[employer] 1134.01 Creo Mis 30mm Modular Polyaxial Tulip Head Screw Bone - [id number] Implanted:Qty: 4 on 06/05/2022 by Daron Russell MD PhD at [facility] N/A: Spine Lumbar [employer] 1134.0100 / / Explanted Type Area Stonemason Supervisor Device Identifier Shelf Expiration Date Model / Serial / Lot Gl[employer] Rey 1.6mm 500mm Blunt Wire Fixation Nitinol 685.007 - S685.007 - [id number] Explanted:Qty: 4 on 12/23/2021 at [facility] N/A: Spine Lumbar [employer] 12/23/2021 685.007 / 685.007 / [employer] Rey 1.6mm 500mm Blunt Wire Fixation Nitinol 685.007 - [id number] Explanted:Qty: 4 on 06/05/2022 by Daron Russell MD PhD at [facility] N/A: Spine Lumbar [employer] 685.007 / / Description:Temporarily plac ed Insurance REPLACED BY [facility] Advance Directives For more information, please contact: [phone] * Full Code (Latest Code Status on File) Date Activated Date Inactivated Comments 06/05/2022 1:19 PM 06/06/2022 4:07 PM * Full Code Date Activated Date Inactivated Comments 12/23/2021 6:20 PM 12/26/2021 12:49 AM Care Teams Gas Technician Relationship Specialty Start Date End Date Pablo Dunn PA [address] [facility] [address] [place] [address] PCP - General Physician Medical Csr 08/23/21
[2024-08-25] MEDS: METOPROLOL TARTRATE INJ 5 MG/5 ML VIAL IV PUSH (08:41)
[2024-08-25 08:48] LABS: Alanine Aminotransferase 53 U/L (6-50); Albumin Level 4.2 g/dL (3.5-5.1); Alkaline Phosphatase 53 U/L (38-126); Anion Gap 11 mmol/L (4-12); Aspartate Amino Transferase 47 U/L (17-59); Bilirubin,Total 1.1 mg/dL (0.2-1.3); Blood Urea Nitrogen 18 mg/dL (9-20); Calcium 9.6 mg/dL (8.4-10.2); Carbon Dioxide 23 mmol/L (22-30); Chloride 106 mmol/L (98-107); Estimated CRCL calculation 93 ml/min; Estimated Glomerular Filt Rate > 60; Glucose 103 mg/dL (65-110); Potassium 3.8 mmol/L (3.4-5.0); Sodium 140 mmol/L (137-145); Total Protein 7.3 g/dL (6.3-8.2)
--- NOTE | 2024-08-25 09:34 | ED_ITS ---
HPI - Arrhythmia/Palpitations General Chief Complaint: Arrhythmia/Palpitations Stated Complaint: new onset atrial fibrillation, mild SOB Time Seen by Provider: 08/25/24 08:14 Source: patient and family Limitations: no limitations History of Present Illness HPI narrative: Patient underwent cataract surgery on his right eye 2 weeks ago and he states at that time his heart rate was reportedly 50s at the time. Today, he did take his metoprolol already for his HTN and was scheduled to undergo cataract surgery however when he arrived for surgery this morning was noted that his heart rate was elevated and he appear to be in new onset atrial fibrillation. He denies any prior diagnosis of atrial fibrillation. States he has a history of a heart murmur. He did see a ironing machine operator approximately 3 years ago for cardiac clearance although he does not recall through whom. Has had an orthopedic surgery with Dr Madden. Denies any history of CHF, CVA or TIA. He is not on anticoagulation. Does drink alcohol heavily episodically/occasionally, for example having 6-7 beers when out with friends socially. Last drink was Sunday. No known history of thyroid abnormalities. Denies any prior CT, aortic plaque, CAD, PAD. No history of diabetes mellitus. Patient reports a history of 2 back surgeries through [facility] due to drop foot and other issues including neuropathy. For these reasons, he notes that he does not ambulate much and slightly becomes short of breath when doing so due to pain. He perhaps has had mild increasing shortness of breath starting Sunday night although unclear. He also notes that he had a strange feeling in his chest on Sunday a dozen quite describe it as palpitations/fluttering. He has not been having chest pain. Patient does have a primary care physician although he states Dr Burgos is relatively new to him. Former smoker who quit >10+ years ago. Related Data Home Medications ?Medication ?Instructions ?Recorded ?Confirmed ?Last Taken ?Type multivitamin with minerals 1 tablet PO DAILY 02/01/23 05/31/23 Unknown History Allergies Allergy/AdvReac Type Severity Reaction Status Date / Time No Known Allergies Allergy Verified 08/25/24 08:02 [facility] Past Medical History Medical History Cataracts, bilateral Body mass index (BMI) of 40.1 to 44.9 in adult Colon cancer screening Hypertension Surgical History Surgical History History of spinal surgery Family History Family History (Updated 12/28/23 @ 08:06 by Joslyn Romo Araseli) Father Hypertension Heart disease Mother Cancer Sibling No problems noted. Other Family history of malignant neoplasm of male breast Social History Social History Smoking status: Former smoker Tobacco type: cigarettes Second hand tobacco smoke exposure: Yes Smoking end date: 02/05/06 Alcohol intake: current Alcohol use details: Occasionally (6-7 beers when consuming) Substance use: current Substance use type: marijuana Other substance usage details: gummies for pain Do You Feel Safe in your Home?: Yes Lack of Transportation: No Lack of Food: Never True Current Housing: I Have Housing Concerned About Future Housing: No Difficulty Paying Gas/Electric Bills: No Difficulty Paying for Meds: No Currently Unemployed: No Education: High School Diploma/GED Difficulty w/ Childcare or Family Care: No Living arrangements: with family Occupation/Education: retired 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 HEAD: Normocephalic, atraumatic. EYES: Non injected, non icteric ENT: Nares clear, no rhinorrhea or epistaxis. Gross auditory acuity intact. NECK: Supple. No meningismus. CHEST: Speaking in full sentences. No respiratory distress. HEART: IRRegularly irregular rate and rhythm. Strong 2+ left radial pulse coincides/corresponds with monitor i.e. perfusing ABDOMEN: Obese but Soft, nondistended. EXTREMITIES: Normal range of motion. SKIN: Warm, dry, no rash on exposed skin. NEURO: No focal deficits. Alert and oriented. Answering questions. Following commands. Normal speech without aphasia or dysarthria. PSYCH: Normal mood and affect. Course Vital Signs Vital signs: Vital Signs Temperature 98.1 F 08/25/24 07:57 Pulse Rate 156 H 08/25/24 07:57 Respiratory Rate 24 H 08/25/24 07:57 Blood Pressure 114/71 08/25/24 07:57 Pulse Oximetry 95 07/21/25 07:57 Oxygen Delivery Room Air 08/25/24 07:57 Temperature 98.1 F 08/25/24 07:57 Pulse Rate 131 H 08/25/24 11:15 Respiratory Rate 21 H 08/25/24 11:15 Blood Pressure 122/75 08/25/24 11:07 Pulse Oximetry 93 08/25/24 11:15 Oxygen Delivery Room Air 08/25/24 09:09 MDM - Arrhythmia/Palpitations MDM Narrative Medical decision making narrative: Patient presents found to have an elevated heart rate when at pre-surgical area for cataract surgery today. In the emergency department he is afebrile with vital signs notable for mild tachypnea. Heart rate is 156. Patient presented with mild dyspnea though unclear how/if changed from baseline. Physical exam revealed an irregular and rapid heartbeat at a rate of 130s-150s beats per minute. Based on this, the most likely diagnosis is atrial fibrillation with rapid ventricular response (AFib with RVR). This is supported by (age, underlying hypertension, possible history valvular disease). He does drink 6-7 beers when drinking socially, last drank on Sunday. An IV was placed and the patient was put on cardiac and pulse oximetry monitors. ECG showed an irregularly irregular narrow-complex tachycardia without associated P-waves, consistent with the diagnosis of Afib with RVR. Patient hemodynamically stable thus early priority in management was to slow the ventricular rate. 5mg IVP over 2min metoprolol given this is a medication he is already on. No immediate response to this however approximately 20 minutes later his rate is 120s-140s. Diltiazem 0.25mg/kg would be >30mg so will have to start lower than this, 20mg IVP ordered. With this it is briefly better controlled but then in the 110s-120s again. Will give 25mg IVP. CHADS VASc score calculated as risk stratification for determining stroke risk. [id number] for Atrial Fibrillation Stroke Risk Age (<60 = 0, 65-75 = +1; >/= +2): 1 Sex (F +1, M 0): 0 CHF history (No 0, Yes +1): Denies but pro BNP >3000 today, +1 HTN Hx (No 0, Yes +1): 1 Stroke/TIA/thromboembolism history (No 0, Yes +2): 0 Vascular disease history - prior CT, peripheral artery disease, or aortic plaque (No 0, Yes +1): 0 Diabetes history (No 0, Yes +1): 0 Total = 3 Stroke risk was 3.2% per year in >90,000 patients (the [place] Atrial Fibrillation Cohort Study) and 4.6% risk of stroke/TIA/systemic embolism. Anticoagulation?should be started?in patients with a CHADS-VASc score of?>=2 if male. Isolated LFT elevation. Thyroid normal. With 2nd dose of diltiazem there is again mild change, typically 100s-110s but also occasionally in the 120s. Given rate control has not successfully been achieved and sustained, will order diltiazem gtt. Patient will require admission for further workup and monitoring as well as discussion of appropriate home going medications. He and his family member are wearing verified understanding. Extensive education on the diagnosis and rationale. Patient is discussed with on-call hospitalist THUY Srinivasan who accepts admission to the IMU. Differential Diagnosis Differential diagnosis: Likely palpitations, sinus tachycardia, artial fibrillation, artial flutter, ventricular premature beats, supraventricular tachycardia, ventricular tachycardia and WPW Lab Data Attestation: I reviewed the patient's lab results. 08/25/24 08:12 08/25/24 08:12 Labs: Lab Results 08/25/24 Range/Units 08:12 WBC 7.0 (4.5-10.0) K/mm3 RBC 4.81 (4.6-6.20) M/mm3 Hgb 15.7 (14.0-18.0) g/dL Hct 45.4 (42.0-52.0) % MCV 94.4 (80-100) fl MCH 32.6 (26-34) pg MCHC 34.6 (32-36) g/dl RDW 13.0 (11.5-14.5) % Plt Count 170 (150-375) k/mm3 MPV 10.8 H (7.4-10.4) fl Immature Gran % (Auto) 0.3 (0-0.5) % Neut % (Auto) 68.6 (45.5-73.1) % Lymph % (Auto) 19.4 (18.3-44.2) % Gray % (Auto) 9.1 H (2.6-8.5) % Eos % (Auto) 2.0 (0-4.4) % Baso % (Auto) 0.6 (0.2-1.2) % Lymph # (Auto) 1.36 (0.9-3.2) K/mm3 Gray # (Auto) 0.6 (0.1-0.6) K/mm3 Eos # (Auto) 0.1 (0-0.3) K/mm3 Baso # (Auto) 0.0 (0.0-0.1) K/mm3 Abs Immat Gran (auto) 0.02 (0.00-0.031) K/mm3 Absolute Neuts (auto) 4.8 (1.3-6.7) K/mm3 Absolute Nucleated RBC 0.000 (0.0-0.012) K/mm3 Nucleated RBC % 0.0 (0.0-0.2) % Sodium 140 (137-145) mmol/L Potassium 3.8 (3.4-5.0) mmol/L Chloride 106 (98-107) mmol/L Carbon Dioxide 23 (22-30) mmol/L Anion Gap 11 (4-12) mmol/L BUN 18 (9-20) mg/dL Creatinine 0.94 (0.7-1.3) mg/dL Estim Creat Clear Calc 93 ml/min Estimated GFR > 60 (59 - ) Glucose 103 (65-110) mg/dL Calcium 9.6 (8.4-10.2) mg/dL Total Bilirubin 1.1 (0.2-1.3) mg/dL AST 47 (17-59) U/L ALT 53 H (6-50) U/L Alkaline Phosphatase 53 (38-126) U/L Troponin I 0.013 (0.000-0.034) ng/mL NT-Pro-B Natriuret Pep 3400 H (19.9-100) pg/mL Total Protein 7.3 (6.3-8.2) g/dL Albumin 4.2 (3.5-5.1) g/dL TSH 1.430 (0.465-4.680) uIU/mL Imaging Data Radiologist's impression: Impressions Chest X-Ray 08/25/24 08:51 IMPRESSION: 1: NO ACUTE CARDIOPULMONARY DISEASE. ECG Data EKG #1: Attestation: I personally reviewed and interpreted this ECG as follows: ECG completion date: 08/25/24 ECG completion time: 07:56 Prior ECG tracings: available for review (Previous EKG in chart was a normal sinus rhythm) Interpretation: Atrial fibrillation a rate of 145 beats per minute thus rapid ventricular response. QRS 104. QT/QTC 286/369. Good R-wave progression across the precordial leads. T-wave inversion in 3 but otherwise upright in normal in contiguous inferior leads. No other T-wave inversions. Slight ST depression in V4 and V5. Discharge Plan Discharge Clinical Impression: Atrial fibrillation, new onset, Elevated ALT measurement Patient Disposition: Still a Patient Condition: Stable Patient Language: Nauruan Prescriptions: No Action All Purpose Multivitamin-Min Tablet 1 tablet PO DAILY fenofibrate micronized 134 mg capsule 134 mg PO DAILY Qty: 90 3RF metoprolol succinate 50 mg tablet extended release 24 hr 50 mg PO DAILY Qty: 90 3RF amlodipine 10 mg tablet 10 mg PO DAILY Qty: 90 3RF hydrochlorothiazide 25 mg tablet See Rx Instructions .ROUTE .COMPLEX Qty: 90 1RF Dose Instruction: TAKE 1 TABLET BY MOUTH EVERY DAY Rx Instructions: TAKE 1 TABLET BY MOUTH EVERY DAY gabapentin 100 mg capsule See Rx Instructions .ROUTE .COMPLEX Qty: 90 3RF Dose Instruction: TAKE 1 CAPSULE BY MOUTH THREE TIMES A DAY Rx Instructions: TAKE 1 CAPSULE BY MOUTH THREE TIMES A DAY Follow-up/Referrals: Ozzie Burgos DO [Primary Care Provider] -
[2024-08-25 10:03] LABS: NT Pro B Type Natriuretic Pept 3400 pg/mL (19.9-100); Troponin I 0.013 ng/mL (0.000-0.034)
[2024-08-25 11:05] LABS: Thyroid Stimulating Hormone 1.430 uIU/mL (0.465-4.680)
[2024-08-25] MEDS: dilTIAZem 100 MG/100 ML 100 MG/100 ML BAG IV CONT (12:23)
--- NOTE | 2024-08-25 13:28 | P.CONCA_ITS ---
Assessment and Plan Assessment and plan (1) Atrial fibrillation with rapid ventricular response: Code(s): I48.91 - Unspecified atrial fibrillation Status: Acute Assessment and Plan: This is a new diagnosis. Chronicity is unknown. I explained the diagnosis of atrial fibrillation including pathophysiology, management strategies, risks/complications. We discussed options for management including rate control versus rhythm control. As this is the patient's 1st known occurrence of atrial fibrillation, B12 decision was made to proceed with rhythm control-plan for ANNA/cardioversion tomorrow. * Continue diltiazem drip for now, increase to 15 milligrams/hour * P.r.n. Lopressor for sustained tachycardia greater than 140 bpm with holding parameters * Echocardiogram has been ordered * Check an ApneaLink * TSH WNL * K+ 3.8, check Mag * NPO at midnight for anesthesia assisted ANNA cardioversion tomorrow (2) Hypertension: Qualifiers: Hypertension type: primary hypertension Qualified Code(s): I10 - Essential (primary) hypertension Code(s): I10 - Essential (primary) hypertension Status: Acute Assessment and Plan: Blood pressure is at goal. Continue antihypertensive regimen without change. History of Present Illness History of Present Illness Consult date/time: 08/25/24 13:28 Requesting physician: Kayla Clay MD Consult reason: atrial fibrillation Reason For Visit: new onset afib Narrative: Binh Masters is a 68-year-old male with hypertension and obesity. He was scheduled to have cataract surgery this morning and preoperatively he was found to be in rapid atrial fibrillation. He came to the emergency department for evaluation. Initial EKG here confirmed atrial fibrillation with rapid ventricular response. Patient denies any history of atrial fibrillation or any other cardiac problems. He states that on a Sunday of last week he did feel a ?weird? sensation in his chest and occasional palpitations has any chest pain, shortness of breath, swelling, and a syncope, or presyncope. He is in place on a diltiazem drip and his heart rate remains elevated in the 120s to 140s. He currently is denying any symptoms. Review of Systems 2 Review of Systems: All systems reviewed & are unremarkable except as noted in HPI and below PMFSH Past Medical History Medical History Dyslipidemia Chronic low back pain Foot drop, bilateral Peripheral neuropathy Hypertension Surgical History Surgical History History of basal cell carcinoma excision left ear History of arthroplasty of left knee History of right cataract extraction (08/2024) History of spinal surgery Family History Family History Father Hypertension Heart disease Mother Cancer Sibling No problems noted. Other Family history of malignant neoplasm of male breast Social History Social History Social History: Surrogate medical decision maker: Vandana Ayalaer, spouse. Code status: Full code. Smoking packs per day: 2 Smoking cigarettes per day: 40.0 Years smoked: 30 Smoking pack-years: 60.00 Smoking status: Former smoker Tobacco type: cigarettes Second hand tobacco smoke exposure: Yes Smoking end date: 02/05/06 Alcohol intake: current Drinks per week: 8 Alcohol use details: occasional/social use (6-7 beers at a setting) Substance use: never Substance use type: does not use Other substance usage details: gummies for pain Do You Feel Safe in your Home?: Yes Lack of Transportation: No Lack of Food: Never True Current Housing: I Have Housing Concerned About Future Housing: No Difficulty Paying Gas/Electric Bills: No Difficulty Paying for Meds: No Currently Unemployed: No Education: High School Diploma/GED Difficulty w/ Childcare or Family Care: No Living arrangements: with family Additional living arrangements comments: Lives with in [place]. 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 Spiritual care concerns: No Meds Home Medications and Allergies Home Medications ?Medication ?Instructions ?Recorded ?Confirmed ?Type multivitamin with minerals 1 tablet PO DAILY 02/01/23 05/31/23 History fenofibrate micronized 134 mg 134 mg PO DAILY #90 caps 09/27/23 Rx capsule metoprolol succinate 50 mg 50 mg PO DAILY #90 tabs 10/29/23 Rx tablet,extended release 24 hr amlodipine 10 mg tablet 10 mg PO DAILY #90 tabs 11/12/23 Rx hydrochlorothiazide 25 mg tablet See Rx Instructions .Route 04/16/24 Rx .COMPLEX #90 tabs gabapentin 100 mg capsule See Rx Instructions .Route 08/18/24 Rx .COMPLEX #90 caps Allergies Allergy/AdvReac Type Severity Reaction Status Date / Time No Known Allergies Allergy Verified 08/25/24 13:38 Vital Signs Vital Signs - 24 hr 08/25/24 07:57 08/25/24 07:58 08/25/24 08:03 Temperature 36.7 C Pulse Rate 156 H 141 H 146 H Respiratory Rate 24 H 24 H 21 H Blood Pressure 114/71 Pulse Oximetry 95 99 97 Oxygen Delivery Room Air 08/25/24 08:11 08/25/24 08:15 08/25/24 08:16 Temperature Pulse Rate 154 H 143 H 143 H Respiratory Rate 28 H 18 Blood Pressure 103/81 Pulse Oximetry 98 97 Oxygen Delivery 08/25/24 08:17 08/25/24 08:30 08/25/24 08:40 Temperature Pulse Rate 143 H 135 H 149 H Respiratory Rate 22 H 23 H 22 H Blood Pressure Pulse Oximetry 97 96 96 Oxygen Delivery 08/25/24 08:41 08/25/24 08:48 08/25/24 09:09 Temperature Pulse Rate 141 H 139 H Respiratory Rate 20 Blood Pressure 100/75 Pulse Oximetry 96 94 Oxygen Delivery Room Air 08/25/24 09:14 08/25/24 09:22 08/25/24 09:30 Temperature Pulse Rate 135 H 118 H 145 H Respiratory Rate 26 H 28 H 32 H Blood Pressure Pulse Oximetry 94 92 96 Oxygen Delivery 08/25/24 09:45 08/25/24 09:46 08/25/24 10:00 Temperature Pulse Rate 128 H 139 H 129 H Respiratory Rate 21 H 21 H 17 Blood Pressure 105/77 Pulse Oximetry 95 95 96 Oxygen Delivery 08/25/24 10:22 08/25/24 10:24 08/25/24 10:27 Temperature Pulse Rate 115 H 128 H 115 H Respiratory Rate 23 H 25 H 12 Blood Pressure 115/81 Pulse Oximetry 96 94 96 Oxygen Delivery 08/25/24 10:28 08/25/24 10:30 08/25/24 10:31 Temperature Pulse Rate 108 H 110 H 134 H Respiratory Rate 12 19 23 H Blood Pressure 115/81 101/75 Pulse Oximetry 97 95 95 Oxygen Delivery 08/25/24 10:45 08/25/24 11:07 08/25/24 11:15 Temperature Pulse Rate 110 H 129 H 131 H Respiratory Rate 19 21 H 21 H Blood Pressure 122/75 Pulse Oximetry 94 96 93 Oxygen Delivery 08/25/24 11:30 08/25/24 11:45 08/25/24 11:57 Temperature Pulse Rate 104 H 103 H 124 H Respiratory Rate 22 H 24 H 19 Blood Pressure 106/86 Pulse Oximetry 94 97 98 Oxygen Delivery 08/25/24 12:05 08/25/24 12:15 08/25/24 12:23 Temperature Pulse Rate 124 H 110 H 130 H Respiratory Rate 14 19 Blood Pressure 121/82 121/82 Pulse Oximetry 96 96 Oxygen Delivery 08/25/24 12:30 08/25/24 12:51 08/25/24 13:00 Temperature Pulse Rate 120 H 130 H 113 H Respiratory Rate 21 H 25 H 20 Blood Pressure 118/84 Pulse Oximetry 95 97 95 Oxygen Delivery 08/25/24 13:05 08/25/24 13:21 Temperature Pulse Rate 121 H 118 H Respiratory Rate Blood Pressure 118/84 Pulse Oximetry Oxygen Delivery Exam 2 Const: General: comfortable, no acute distress, alert and awake O rientation/consciousness: patient oriented x3 Other: Obese HENMT: Head: normal to inspection Eyes: General: appearance normal, both eyes and all related structures P upils: Equal, round and reactive pupils present Neck: Neck: normal visual inspection, supple and no JVD Carotids: normal carotid upstroke Resp: Effort & Inspection: normal respiratory effort Auscultation: clear to auscultation bilaterally Cardio: Rate: tachycardic Rhythm: abnormal rhythm irregularly irregular Heart sounds: S1 normal heart sound present, S2 normal heart sound present and Murmur heart sound present systolic GI: Auscultation: normal bowel sounds Skin: General skin exam: normal color Neuro: General: patient oriented x3 Cranial nerves: Yes Equal, round and reactive pupils present Extrem: General: edema (Trace bilateral pretibial and pedal edema) Psych: Appearance: grossly normal Mental Status: mental status grossly normal Results Labs and Meds 08/25/24 08:12 08/25/24 08:12 Lab results: Cardiac Enzymes 08/25/24 Range/Units 08:12 AST 47 (17-59) U/L Troponin I 0.013 (0.000-0.034) ng/mL CBC 08/25/24 Range/Units 08:12 WBC 7.0 (4.5-10.0) K/mm3 RBC 4.81 (4.6-6.20) M/mm3 Hgb 15.7 (14.0-18.0) g/dL Hct 45.4 (42.0-52.0) % Plt Count 170 (150-375) k/mm3 Lymph # (Auto) 1.36 (0.9-3.2) K/mm3 Long # (Auto) 0.6 (0.1-0.6) K/mm3 Eos # (Auto) 0.1 (0-0.3) K/mm3 Baso # (Auto) 0.0 (0.0-0.1) K/mm3 Comprehensive Metabolic Panel 08/25/24 Range/Units 08:12 Sodium 140 (137-145) mmol/L Potassium 3.8 (3.4-5.0) mmol/L Chloride 106 (98-107) mmol/L Carbon Dioxide 23 (22-30) mmol/L BUN 18 (9-20) mg/dL Creatinine 0.94 (0.7-1.3) mg/dL Glucose 103 (65-110) mg/dL Calcium 9.6 (8.4-10.2) mg/dL AST 47 (17-59) U/L ALT 53 H (6-50) U/L Alkaline Phosphatase 53 (38-126) U/L Total Protein 7.3 (6.3-8.2) g/dL Albumin 4.2 (3.5-5.1) g/dL Intake and Output 08/24/24 08/25/24 08/25/24 23:59 07:59 15:59 Intake Total 5.5 Balance 5.5 Intake: IV 5.5 dilTIAZem 100 MG/100 ML 100 mg 5.5 In 100 ml @ 5 MG/HR 5 mls/hr IV CONT .Q20H STA Rx#:[id number] Patient Weight 08/25/24 23:59 Weight 128.8 kg
--- NOTE | 2024-08-25 13:38 | ADMGEN ---
This patient, Binh Masters, was admitted to IMU Room 211-01. Patient/family oriented to hospital policies and general routines including ID bracelet, bed and alarms, visiting hours, pain management, procedures, bathroom and other care routines, personal items, smoking policy, room service/diet, and visiting hours. Information on how to activate the Rapid Response Team has been discussed. Patient/Family are encouraged to report perceived risks to care and to ask questions if they do not understand what they are told or what they should do.
--- NOTE | 2024-08-25 13:55 | P.HP_ITS ---
H&P: HPI History of Present Illness Date/Time: 08/25/24 15:00 Chief Complaint: New onset atrial fibrillation. Narrative: This is a 68-year-old male with history of hypertension who presented to the emergency department via private vehicle for evaluation of new onset atrial fibrillation. He underwent surgery for right-sided cataract 2 weeks ago and he had an appointment today to have the same surgery done on the left side. Preoperatively was found to be in new onset atrial fibrillation with rapid ventricular response and he was instead directed to the emergency department. With further questioning, he admits that he was feeling a little breathless and fatigued when he woke up on Sunday morning. He used his 's rescue inhaler which did not provide him any benefit and he was feeling better by Sunday and was able to mow the lawn without issue. Now that he knows he is in atrial fibrillation, he thinks he may have felt mild fluttering in his chest on Sunday but nothing significant. He drinks 32 oz of coffee a day and a couple of times a week he meets his friends for drinks and typically has 6 or 7 beers in a setting. He denies syncope, near syncope, sweats, recent cold and flu symptoms, exertional chest pain, pleuritic pain, orthopnea, paroxysmal nocturnal dyspnea, edema, calf pain, nausea, and vomiting. He has no known history of sleep apnea and denies concerns for the same. He has no history of dysrhythmia, coronary artery disease, congestive heart failure, or thyroid disease. In the ED: He was afebrile on arrival with a blood pressure of 114/71 and a pulse of 156. EKG showed atrial fibrillation with rapid ventricular response and nonspecific ST and T-wave abnormalities. Initial troponin was 0.013. ProBNP was 3400. TSH was normal. The remainder of his labs were pretty unremarkable. Chest x-ray showed no acute cardiopulmonary disease and a cardiomediastinal silhouette within normal limits. He received metoprolol 5 mg IV without significant improvement his heart rate. He was then given diltiazem IV bolus and has since been started on a diltiazem drip. He is being admitted in this setting for further treatment and workup. Review of Systems Review of Systems: 12 systems were reviewed and are negativ e except for as per HPI. [facility] Past Medical History Medical History Dyslipidemia Chronic low back pain Foot drop, bilateral Peripheral neuropathy Hypertension Surgical History Surgical History History of basal cell carcinoma excision left ear History of arthroplasty of left knee History of right cataract extraction (08/2024) History of spinal surgery Family History Family History Father Hypertension Heart disease Mother Cancer Sibling No problems noted. Other Family history of malignant neoplasm of male breast Social History Social History Social History: Surrogate medical decision maker: Vandana Ayalaer, spouse. Code status: Full code. Smoking packs per day: 2 Smoking cigarettes per day: 40.0 Years smoked: 30 Smoking pack-years: 60.00 Smoking status: Former smoker Tobacco type: cigarettes Second hand tobacco smoke exposure: Yes Smoking end date: 02/05/06 Alcohol intake: current Drinks per week: 8 Alcohol use details: occasional/social use (6-7 beers at a setting) Substance use: never Substance use type: does not use Other substance usage details: gummies for pain Do You Feel Safe in your Home?: Yes Lack of Transportation: No Lack of Food: Never True Current Housing: I Have Housing Concerned About Future Housing: No Difficulty Paying Gas/Electric Bills: No Difficulty Paying for Meds: No Currently Unemployed: No Education: High School Diploma/GED Difficulty w/ Childcare or Family Care: No Living arrangements: with family Additional living arrangements comments: Lives with in [place]. 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 Spiritual care concerns: No Meds Home Medications and Allergies Home Medications ?Medication ?Instructions ?Recorded ?Confirmed ?Type multivitamin with minerals 1 tablet PO DAILY 02/01/23 08/25/24 History fenofibrate micronized 134 mg 134 mg PO DAILY #90 caps 09/27/23 08/25/24 Rx capsule metoprolol succinate 50 mg 50 mg PO DAILY #90 tabs 10/29/23 08/25/24 Rx tablet,extended release 24 hr amlodipine 10 mg tablet 10 mg PO DAILY #90 tabs 11/12/23 08/25/24 Rx hydrochlorothiazide 25 mg tablet See Rx Instructions .Route 04/16/24 08/25/24 Rx .COMPLEX #90 tabs gabapentin 100 mg capsule See Rx Instructions .Route 08/18/24 08/25/24 Rx .COMPLEX #90 caps prednisolone acetate 1 % eye 1 drp RIGHT EYE TID 08/25/24 08/25/24 History drops,suspension Allergies Allergy/AdvReac Type Severity Reaction Status Date / Time No Known Allergies Allergy Verified 08/25/24 13:38 Vital Signs Vital Signs - 24 hr 08/25/24 07:57 08/25/24 07:58 08/25/24 08:03 Temperature 98.1 F Pulse Rate 156 H 141 H 146 H Respiratory Rate 24 H 24 H 21 H Blood Pressure 114/71 Pulse Oximetry 95 99 97 Oxygen Delivery Room Air 08/25/24 08:11 08/25/24 08:15 08/25/24 08:16 Temperature Pulse Rate 154 H 143 H 143 H Respiratory Rate 28 H 18 Blood Pressure 103/81 Pulse Oximetry 98 97 Oxygen Delivery 08/25/24 08:17 08/25/24 08:30 08/25/24 08:40 Temperature Pulse Rate 143 H 135 H 149 H Respiratory Rate 22 H 23 H 22 H Blood Pressure Pulse Oximetry 97 96 96 Oxygen Delivery 08/25/24 08:41 08/25/24 08:48 08/25/24 09:09 Temperature Pulse Rate 141 H 139 H Respiratory Rate 20 Blood Pressure 100/75 Pulse Oximetry 96 94 Oxygen Delivery Room Air 08/25/24 09:14 08/25/24 09:22 08/25/24 09:30 Temperature Pulse Rate 135 H 118 H 145 H Respiratory Rate 26 H 28 H 32 H Blood Pressure Pulse Oximetry 94 92 96 Oxygen Delivery 08/25/24 09:45 08/25/24 09:46 08/25/24 10:00 Temperature Pulse Rate 128 H 139 H 129 H Respiratory Rate 21 H 21 H 17 Blood Pressure 105/77 Pulse Oximetry 95 95 96 Oxygen Delivery 08/25/24 10:22 08/25/24 10:24 08/25/24 10:27 Temperature Pulse Rate 115 H 128 H 115 H Respiratory Rate 23 H 25 H 12 Blood Pressure 115/81 Pulse Oximetry 96 94 96 Oxygen Delivery 08/25/24 10:28 08/25/24 10:30 08/25/24 10:31 Temperature Pulse Rate 108 H 110 H 134 H Respiratory Rate 12 19 23 H Blood Pressure 115/81 101/75 Pulse Oximetry 97 95 95 Oxygen Delivery 08/25/24 10:45 08/25/24 11:07 08/25/24 11:15 Temperature Pulse Rate 110 H 129 H 131 H Respiratory Rate 19 21 H 21 H Blood Pressure 122/75 Pulse Oximetry 94 96 93 Oxygen Delivery 08/25/24 11:30 08/25/24 11:45 08/25/24 11:57 Temperature Pulse Rate 104 H 103 H 124 H Respiratory Rate 22 H 24 H 19 Blood Pressure 106/86 Pulse Oximetry 94 97 98 Oxygen Delivery 08/25/24 12:05 08/25/24 12:15 08/25/24 12:23 Temperature Pulse Rate 124 H 110 H 130 H Respiratory Rate 14 19 Blood Pressure 121/82 121/82 Pulse Oximetry 96 96 Oxygen Delivery 08/25/24 12:30 08/25/24 12:51 08/25/24 13:00 Temperature Pulse Rate 120 H 130 H 113 H Respiratory Rate 21 H 25 H 20 Blood Pressure 118/84 Pulse Oximetry 95 97 95 Oxygen Delivery 08/25/24 13:05 08/25/24 13:21 08/25/24 13:45 Temperature 98.1 F Pulse Rate 121 H 118 H 134 H Respiratory Rate 36 H Blood Pressure 118/84 122/90 Pulse Oximetry 98 Oxygen Delivery Exam Narrative: General: Nontoxic-appearing male supine in bed in no acute distress. Weight: 130.5 kg. BMI: 39.0. HEENT: PERRL, EOMI. Sclera anicteric. Oral mucosa moist. Neck: Supple. Respiratory: Lungs are clear to auscultation bilaterally. Cardiovascular: Irregularly irregular rate and rhythm. Gastrointestinal: Abdomen is soft, obese, nontender, and nondistended with positive bowel sounds. Skin: Warm and dry. No rash or lesions on limited exam. Extremities: No cyanosis, clubbing, or significant edema. Radial and pedal pulses intact. Neurological: Alert. Cranial nerves grossly intact. No gross focal deficits to casual conversation. Psychiatric: Pleasant and cooperative with normal mood and affect. Judgment and insight intact. H&P: Results Labs Labs: Short CBC 08/25/24 Range/Units 08:12 WBC 7.0 (4.5-10.0) K/mm3 Hgb 15.7 (14.0-18.0) g/dL Hct 45.4 (42.0-52.0) % Plt Count 170 (150-375) k/mm3 BMP 08/25/24 08:12 Sodium 140 Potassium 3.8 Chloride 106 Carbon Dioxide 23 BUN 18 Creatinine 0.94 Glucose 103 Calcium 9.6 Cardiac Enzymes 08/25/24 Range/Units 08:12 Troponin I 0.013 (0.000-0.034) ng/mL Liver Function 08/25/24 Range/Units 08:12 Total Bilirubin 1.1 (0.2-1.3) mg/dL AST 47 (17-59) U/L ALT 53 H (6-50) U/L Alkaline Phosphatase 53 (38-126) U/L Albumin 4.2 (3.5-5.1) g/dL Imaging Chest X-Ray 08/25/24 08:51 IMPRESSION: 1: NO ACUTE CARDIOPULMONARY DISEASE. Assessment and Plan Assessment and plan (1) Atrial fibrillation with rapid ventricular response: Code(s): I48.91 - Unspecified atrial fibrillation Status: Acute (2) Atrial fibrillation, new onset: Code(s): I48.91 - Unspecified atrial fibrillation Status: Acute (3) Hypertension: Qualifiers: Hypertension type: primary hypertension Qualified Code(s): I10 - Essential (primary) hypertension Code(s): I10 - Essential (primary) hypertension Status: Acute (4) Dyslipidemia: Code(s): E78.5 - Hyperlipidemia, unspecified Status: Acute Plan The patient presented to the emergency department for evaluation after he was found to be in rapid atrial fibrillation, new diagnosis for him, when he went to have a cataract extraction earlier today as detailed in HPI. Labs, imaging, EKG, and all reports were personally reviewed. He may very well have gone into atrial fibrillation sometime over the weekend as he awoke with mild shortness of breath and fatigue on Sunday. He has been started on a diltiazem drip with improvement in his rate. [id number] is at least 3 and he has been started on anticoagulation. Echocardiogram, TSH, and ApneaLink have been ordered. Cardiology input is appreciated. Blood pressures have been stable and will be monitored closely. His home medications will be reviewed and resumed as appropriate. Findings and treatment plan were discussed with the patient. Questions were solicited and answered to satisfaction. The patient's medical management will be taken over by the hospitalist team in a.m. Quality VTE Prophylaxis VTE prophylaxis: pharmacologic ordered The patient has been admitted under observation status. Hospitalist MIPS Advance Care Plan I have confirmed that the patient's Advanced Care Plan is present, code status is documented, or surrogate decision maker is listed in patient medical record.: Yes Medication Reconciliation I have utilized all available resources to obtain, update and review the patients current medications (includes all prescriptions, OTC, herbals, cannabis, and nutritional supplements).: Yes
[2024-08-25] MEDS: PERFLUTREN LIPID MICROSPHERES 1.5 ML VIAL DILUTED TO 10 ML TOTAL VOLUME IV PUSH (15:40)
--- NOTE | 2024-08-25 15:44 | IVDEFINITY ---
Prior to administration of IV Definity the patient was educated on the risks and benefits of the imaging enhancing agent including potential adverse side effects. The patient verbalized understanding. Allergies were verified. No exclusion criteria were identified and at least one of the following inclusion criteria were met: 1) physician request, 2) patient technically difficult to image (per the [place] [employer]ch[employer] guidelines of two or more segments not discernable within the apical view), or 3) questionable left ventricular function. ?
[2024-08-25 16:58] LABS: Magnesium 1.9 mg/dL (1.6-2.3)
[2024-08-25] MEDS: dilTIAZem 100 MG/100 ML 100 MG/100 ML BAG 15 MG IV CONT (19:36)
[2024-08-25] MEDS: APIXABAN 5 MG TABLET PO (21:41)
[2024-08-26] VITALS (11 sets, daily range): BP systolic 114–127; BP diastolic 65–71; PULSE 61–78; RESP 14–16; TEMP 36.4–36.8; O2SAT 92–97
[2024-08-26] MEDS: APIXABAN 5 MG TABLET PO (08:17)
--- NOTE | 2024-08-26 08:37 | P.PNCA_ITS ---
Progress Note: A&P Assessment and Plan (1) Atrial fibrillation with rapid ventricular response: Code(s): I48.91 - Unspecified atrial fibrillation Status: Acute Assessment and Plan: This is a new diagnosis. Chronicity is unknown. I explained the diagnosis of atrial fibrillation including pathophysiology, management strategies, risks/complications. We discussed options for management including rate control versus rhythm control. As this is the patient's 1st known occurrence of atrial fibrillation, mutual decision was made to proceed with rhythm control-plan for ANNA/cardioversion, however he spontaneously converted to sinus rhythm overnight. * Diltiazem discontinued * Continue home metoprolol succinate 50mg daily * Echocardiogram has been ordered and will be reviewed * ApneaLink with AHI 43 - needs outpatient sleep study * CHADs2 vasc score is 2 (age, HTN). Continue apixaban 5mg p.o. b.i.d. * Will arrange for follow up in our office * OK for discharge today from a cardiac perspective (2) Hypertension: Qualifiers: Hypertension type: primary hypertension Qualified Code(s): I10 - Essential (primary) hypertension Code(s): I10 - Essential (primary) hypertension Status: Acute Assessment and Plan: Blood pressure is at goal. Continue antihypertensive regimen without change. (3) Aortic stenosis: Code(s): I35.0 - Nonrheumatic aortic (valve) stenosis Status: Acute Assessment and Plan: Previously mild. Does have a murmur indicating probably a more significant level of stenosis. Will review echo. Subjective Date/time seen: 08/26/24 08:37 Interval history: Cardiology follow up visit Spontaneously converted to sinus rhythm overnight. Feels well today with no complaints. Review of Systems Review of Systems: All systems reviewed & are unremarkable except as noted in HPI and below Exam Const: General: comfortable, no acute distress, alert and awake Orientation/consciousness: patient oriented x3 Other: Obese HENMT: Head: normal to inspection Eyes: General: appearance normal, both eyes and all related structures Pupils: Equal, round and reactive pupils present Neck: Neck: normal visual inspection, supple and no JVD Carotids: normal carotid upstroke Resp: Effort & Inspection: normal respiratory effort Auscultation: clear to auscultation bilaterally Cardio: Rate: regular rate Rhythm: regular rhythm Heart sounds: S1 normal heart sound present, S2 normal heart sound present and Murmur heart sound present systolic GI: Auscultation: normal bowel sounds Skin: General skin exam: normal color Neuro: General: patient oriented x3 Cranial nerves: Yes Equal, round and reactive pupils present Extrem: General: edema (Trace bilateral pretibial and pedal edema) Psych: Appearance: grossly normal Mental Status: mental status grossly normal Objective Data Vital Signs Vital Signs: Vital Signs - 24 hr 08/25/24 08:40 08/25/24 08:41 08/25/24 08:48 Temperature Pulse Rate 149 H 141 H 139 H Respiratory Rate 22 H 20 Blood Pressure 100/75 Pulse Oximetry 96 96 Oxygen Delivery 08/25/24 09:09 08/25/24 09:14 08/25/24 09:22 Temperature Pulse Rate 135 H 118 H Respiratory Rate 26 H 28 H Blood Pressure Pulse Oximetry 94 94 92 Oxygen Delivery Room Air 08/25/24 09:30 08/25/24 09:45 08/25/24 09:46 Temperature Pulse Rate 145 H 128 H 139 H Respiratory Rate 32 H 21 H 21 H Blood Pressure 105/77 Pulse Oximetry 96 95 95 Oxygen Delivery 08/25/24 10:00 08/25/24 10:22 08/25/24 10:24 Temperature Pulse Rate 129 H 115 H 128 H Respiratory Rate 17 23 H 25 H Blood Pressure Pulse Oximetry 96 96 94 Oxygen Delivery 08/25/24 10:27 08/25/24 10:28 08/25/24 10:30 Temperature Pulse Rate 115 H 108 H 110 H Respiratory Rate 12 12 19 Blood Pressure 115/81 115/81 Pulse Oximetry 96 97 95 Oxygen Delivery 08/25/24 10:31 08/25/24 10:45 08/25/24 11:07 Temperature Pulse Rate 134 H 110 H 129 H Respiratory Rate 23 H 19 21 H Blood Pressure 101/75 122/75 Pulse Oximetry 95 94 96 Oxygen Delivery 08/25/24 11:15 08/25/24 11:30 08/25/24 11:45 Temperature Pulse Rate 131 H 104 H 103 H Respiratory Rate 21 H 22 H 24 H Blood Pressure Pulse Oximetry 93 94 97 Oxygen Delivery 08/25/24 11:57 08/25/24 12:05 08/25/24 12:15 Temperature Pulse Rate 124 H 124 H 110 H Respiratory Rate 19 14 19 Blood Pressure 106/86 121/82 Pulse Oximetry 98 96 96 Oxygen Delivery 08/25/24 12:23 08/25/24 12:30 08/25/24 12:51 Temperature Pulse Rate 130 H 120 H 130 H Respiratory Rate 21 H 25 H Blood Pressure 121/82 Pulse Oximetry 95 97 Oxygen Delivery 08/25/24 13:00 08/25/24 13:05 08/25/24 13:21 Temperature Pulse Rate 113 H 121 H 118 H Respiratory Rate 20 Blood Pressure 118/84 118/84 Pulse Oximetry 95 Oxygen Delivery 08/25/24 13:45 08/25/24 14:00 08/25/24 15:30 Temperature 36.7 C Pulse Rate 134 H 127 H 106 H Respiratory Rate 36 H Blood Pressure 122/90 Pulse Oximetry 98 Oxygen Delivery 08/25/24 15:46 08/25/24 16:28 08/25/24 17:30 Temperature 36.8 C Pulse Rate 110 H 131 H 98 Respiratory Rate 28 H Blood Pressure 157/122 H Pulse Oximetry 96 Oxygen Delivery 08/25/24 17:57 08/25/24 19:36 08/25/24 19:45 Temperature Pulse Rate 98 116 H 112 H Respiratory Rate Blood Pressure 112/66 Pulse Oximetry Oxygen Delivery 08/25/24 20:00 08/25/24 20:00 08/25/24 20:00 Temperature 36.8 C Pulse Rate 77 100 Respiratory Rate 16 Blood Pressure 112/66 Pulse Oximetry 96 Oxygen Delivery Room Air 08/25/24 20:10 08/25/24 20:10 08/25/24 22:00 Temperature Pulse Rate 58 L 58 L 64 Respiratory Rate Blood Pressure Pulse Oximetry Oxygen Delivery 08/25/24 22:00 08/25/24 23:46 08/25/24 23:55 Temperature Pulse Rate 64 59 L Respiratory Rate Blood Pressure Pulse Oximetry Oxygen Delivery Room Air 08/26/24 00:00 08/26/24 00:00 08/26/24 02:00 Temperature 36.6 C Pulse Rate 61 66 78 Respiratory Rate 16 Blood Pressure 114/65 Pulse Oximetry 97 Oxygen Delivery 08/26/24 04:00 08/26/24 04:00 08/26/24 04:00 Temperature Pulse Rate 64 64 Respiratory Rate Blood Pressure Pulse Oximetry Oxygen Delivery Room Air 08/26/24 04:00 08/26/24 06:00 08/26/24 07:25 Temperature 36.8 C 36.4 C L Pulse Rate 74 64 75 Respiratory Rate 16 14 Blood Pressure 119/71 122/71 Pulse Oximetry 94 94 Oxygen Delivery 08/26/24 08:34 Temperature Pulse Rate Respiratory Rate Blood Pressure Pulse Oximetry 92 Oxygen Delivery Room Air Intake/Output Intake/Output: Intake & Output 08/23/24 08/24/24 08/25/24 08/26/24 23:59 23:59 23:59 23:59 Intake Total 339.3 120 Output Total 200 250 Balance 139.3 -130 Meds/Results Medications: Active Medications Generic Name Dose Route Start Last Admin Trade Name Freq PRN Reason Stop Dose Admin Acetaminophen 650 mg 08/25/24 12:16 Acetaminophen 325 Mg Tablet PO Q4H PRN Mild Pain (1-3) or Fever Apixaban 5 mg 08/25/24 21:00 08/26/24 08:17 Apixaban 5 Mg Tablet PO 5 mg Q12HR NATALIYA Administration Diltiazem HCl 100 mg in 100 mls @ 0 mls/hr 08/25/24 19:30 08/26/24 06:00 Cardizem 100 Mg/100 Ml IV CONT 0 mg/hr .Q0M NATALIYA 0 mls/hr Infusion Metoprolol Tartrate 5 mg 08/25/24 14:14 Metoprolol Tartrate Inj 5 Mg/5 Ml Vial IV PUSH Q2H PRN Tachycardia Ondansetron HCl 4 mg 08/25/24 12:16 Ondansetron Inj 4 Mg/2 Ml Vial IV PUSH Q4H PRN Nausea Radiology Results: ITS Impressions Chest X-Ray 08/25/24 08:51 IMPRESSION: 1: NO ACUTE CARDIOPULMONARY DISEASE. Labs Labs: Laboratory Results - last 24 hr 08/25/24 08/25/24 08:12 16:17 Sodium 140 Potassium 3.8 Chloride 106 Carbon Dioxide 23 Anion Gap 11 BUN 18 Creatinine 0.94 Estim Creat Clear Calc 93 Estimated GFR > 60 Glucose 103 Calcium 9.6 Magnesium 1.9 Total Bilirubin 1.1 AST 47 ALT 53 H Alkaline Phosphatase 53 Troponin I 0.013 NT-Pro-B Natriuret Pep 3400 H Total Protein 7.3 Albumin 4.2 TSH 1.430 Quality VTE Prophylaxis VTE prophylaxis: pharmacologic ordered
--- NOTE | 2024-08-26 15:46 | PM.DS ---
DS: Admitting Diagnosis Discharge Date 08/25/24 Admitting Diagnosis New onset atrial fibrillation. DS: Summary Hospital Course Hospital Course: 69 y/o presented with new onset atrial fibrillation, patient was started on diltiazem and her spontaneously converted to NSR, phone banker stopped diltiazem and continued his home metoprolol, and being anticoagulated with apixaban, patient is clinically stable, will discharge patient home today. Time Spent with Patient Time attestation: Total time spent providing and/or coordinating discharge services: Exam Narrative: General: Nontoxic-appearing male supine in bed in no acute distress. Weight: 130.5 kg. BMI: 39.0. HEENT: Sclera anicteric. Oral mucosa moist. Neck: Supple. Respiratory: Lungs are clear to auscultation bilaterally. Cardiovascular: RR S1 S2 Gastrointestinal: Abdomen is soft, obese, nontender, and nondistended with positive bowel sounds. Skin: Warm and dry. No rash or lesions on limited exam. Extremities: No cyanosis, clubbing, or significant edema. Radial and pedal pulses intact. Neurological: Alert. Cranial nerves grossly intact. No gross focal deficits to casual conversation. Psychiatric: Pleasant and cooperative with normal mood and affect. Judgment and insight intact. DS: Data Data Completed and Pending Labs on day of discharge: Labs from last 24 hours 08/25/24 16:17 Magnesium 1.9 Discharge Plan Discharge Attending physician on discharge: Karri Ascencio Consulting providers: Vamsi Avendano; Blanca Black; Zarina Acosta Ripa K.; Carlos A Villarreal Discharging Clinician: Karri Ascencio Patient Disposition: Home Activity: as tolerated Diet: heart healthy Discharge Instructions: Patient to follow discharge care instruction from his phone banker and follow up as scheduled, patient to follow up with his primary care provider as soon as possible, patient is instructed if any symptoms worsen to go to nearest ER. patient will follow up with his phone banker for his cardiac ECHO results. Patient Instructions: Antibiotic Form Patient Language: Indonesian Stand Alone Forms: General Discharge Information Follow-up/Referrals: Vamsi Avendano MD [Physician] - Ozzie Burgos DO [Primary Care Provider] - Discharge Medications: New Eliquis 5 mg Tablet 5 mg PO Q12HR Qty: 60 0RF Continued multivitamin with minerals Tablet 1 tablet PO DAILY prednisolone acetate 1 % drops,suspension 1 drp RIGHT EYE TID Patient Comments: At bedside, spouse brought in to patient. fenofibrate micronized 134 mg capsule 134 mg PO DAILY Qty: 90 3RF Patient Comments: Takes two times per week, on Sunday and amlodipine 10 mg tablet 10 mg PO DAILY Qty: 90 3RF hydrochlorothiazide 25 mg tablet See Rx Instructions .ROUTE .COMPLEX Qty: 90 1RF Dose Instruction: TAKE 1 TABLET BY MOUTH EVERY DAY Rx Instructions: TAKE 1 TABLET BY MOUTH EVERY DAY gabapentin 100 mg capsule See Rx Instructions .ROUTE .COMPLEX Qty: 90 3RF Dose Instruction: TAKE 1 CAPSULE BY MOUTH THREE TIMES A DAY Rx Instructions: TAKE 1 CAPSULE BY MOUTH THREE TIMES A DAY No Action metoprolol succinate 100 mg tablet extended release 24 hr 100 mg PO DAILY Qty: 30 4RF Date of admission: 08/25/24 12:16 Primary Care Provider: Ozzie Burgos Admitting Provider: Karri Ascencio Attending physician on admission: Karri Ascencio Condition: Stable
== END 2024-08-26 15:54 | disposition home or self-care (01) ==
LOC: ANHED 12:20 → ANHIMU 12:48
PROVIDERS: Nurse Practitioner; Admitting Provider Family Medicine; Emergency Provider Student in an Organized Health Care Education/Training Program; PCP Internal Medicine; Visit Provider Family Medicine
DX: I48.91 Unspecified atrial fibrillation (principal); I10 Essential (primary) hypertension; I35.0 Nonrheumatic aortic (valve) stenosis; R74.8 Abnormal levels of other serum enzymes; G62.9 Polyneuropathy, unspecified; M54.50 Low back pain, unspecified; E78.5 Hyperlipidemia, unspecified; H26.9 Unspecified cataract; Z98.41 Cataract extraction status, right eye; Z87.891 Personal history of nicotine dependence
CPT/HCPCS: 36415; 71045; 80053; 83735; 83880; 84443; 84484; 85025; 93005; 96372; 96374; 96375; 96376; 99285; A9270; C8929; G0378; J0616; J1163; Q9957

== ENCOUNTER 2024-10-24 07:49 | Outpatient (CLI) | payer OTHER, SELFPAY ==
--- OUTSIDE RECORDS SUMMARY | 2024-10-24 07:56 | XMS_ITS | Encounter Summary ---
Author Organization [facility] Healthcare Address [address] [place] [address] Care Team Providers Care Aeronautical Products Sales Engineer Name Role Phone Ozzie Burgos DO Primary Care Provider [phone] Dilma Granados BOTTLING LINE ATTENDANT Unavailable [phone] Encounter Details Date Type Department Care Team (Late st Contact Info) Description 09/09/2024 Results Follow-Up [facility] Medical Group Cardiology [address] [facility] [address] [place] [address] Prachi Cordero NP [address] [place] [address] Transthoracic Echo (TTE) Complete W Doppler/CF Social History Tobacco Use Types Packs/Day Years Used Date Smoking Tobacco: Former Cigarettes 2 30 1 979 - 2008 Smokeless Tobacco: Former Chew Quit: 09/2020 AUDIT-C Answer Date Recorded Q1: How often [...] on file Legal Sex 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 Gender Identity Not on file Sexual Orientation Not on file Occupation Industry Job Start Date Job End Date Retired Not on file Not on file Not on file documented as of this encounter Plan of Treatment Upcoming Encounters Date Type Department Care Team (Latest Contact Info) Description 12/10/2024 8:45 AM FUR TRIMMING MACHINE OPERATOR Hospital Encounter [facility] Electrophysiology Lab [address] [place] [address] Daron Villalpando MD [address] [place] [address] Persistent atrial fibrillation (HCC) 12/10/2024 8:45 AM FUR TRIMMING MACHINE OPERATOR - 12/10/2024 11:55 AM FUR TRIMMING MACHINE OPERATOR Surgery [facility] Electrophysiology Lab [address] [place] [address] Daron Villalpando MD [address] [place], [place] [id number] ABLATION ATRIAL FIBRILLATION (A-FIB) VIA PULMONARY VEIN ISOLATION [id number] documented as of this encounter Visit Diagnoses Not on filedocumented in this encounter Additional Health Concerns Infection Onset Date Last Indicated Resolved Time COVID: Suspected 10/17/2024 10/18/2024 10/18/2024 4:15 AM CDT Ring Surveillance: C. auris Comment:[id number], swabs on Sunday10/18/2024 10/18/2024 documented as of this encounter Care Teams Aeronautical Products Sales Engineer Relationship Specialty Start Date End Date Ozzie Burgos DO PCP - General Internal Medicine 09/01/24 Dilma Granados, BOTTLING LINE ATTENDANT [address] [facility] [place] Mailstop [phone] [place] [address] [facility] 10/21/24 documented as of this encounter
--- OUTSIDE RECORDS SUMMARY | 2024-10-24 07:56 | XMS_ITS | Clinical Summary ---
Author Organization [facility] Address [address] [place] [address] Care Team Providers Care Piano Regulator Name Role Phone Unavailable Primary Care Provider [...] Vaccines (1 of 2) 2006 COVID-19 Vaccine (1 - 2023-2 5 season) 2024 RSV Immunization or 60+ Years (1 - [...]
--- OUTSIDE RECORDS SUMMARY | 2024-10-24 07:56 | XMS_ITS ---
Care Plan Created on: October 24, 2024 Binh Masters : 1955 Sex: Male Author Organization [facility] Address [address] [place] [id number] Care Team Providers Care Manager Requirements Name Role Phone Ozzie Burgos Primary Care Provider [phone] Dilma Granados PROJECTION WELDING MACHINE OPERATOR Unavailable [phone] Active Problems Problem Noted Date Diagnosed Date Coronary artery disease 10/18/2024 Assessment & Plan (10/18/2024 3:26 AM CDT): Unclear documented history of CABG, per some records he had CABG, per some his father had CABG? Not on antiplatelet agent Continue home medication fenofibrate Chronic systolic heart failure 10/18/2024 Assessment & Plan (10/20/2024 7:40 AM CDT): ECHO 09/2024: EF 43%, diastolic dysfunction present. - euvolemic on exam - continue home metoprolol and entresto Assessment & Plan (10/19/2024 7:19 AM CDT): ECHO 09/2024: EF 43%, diastolic dysfunction present. - euvolemic on exam - continue home metoprolol and entresto Assessment & Plan (10/18/2024 12:03 PM CDT): ECHO 09/2024: EF 43%, diastolic dysfunction present. - euvolemic on exam - continue home metoprolol and entresto Assessment & Plan (10/18/2024 3:26 AM CDT): ECHO 09/2024:EF 43%,diastolic dysfunction present Euvolemic on exam , mild lower extremity edema Continue home medication metoprolol and entresto Atrial fibrillation with RVR 10/17/2024 Assessment & Plan (10/20/2024 3:55 PM CDT): First diagnosed on 08/25/2024 when he presented for left eye cataract surgery. Was started on diltiazem with plans for a ANNA cardioversion the next day but converted spontaneously during hospitalization. Was ultimately discharged on metoprolol succinate 50 daily. Referred to EP (Dr. Villalpando). Has been experiencing significant decline in his functional status (chest pain, shortness of breath, heart racing, dizziness) so decision was made to pursue rhythm control strategy. Directly admitted for dofetilide loading. - EP following - baseline QTc 454 ms - started dofetilide 500mcg BID --> QTc 520 ms after second dose - reduced dofetilide to 250 mcg BID, continue QTc monitoring 2 hrs after each dose - given paroxysmal A-fib/flutter, no indication for cardioversion per EP - continue home metop XL 150mg daily - continue home Eliquis - continuous telemetry monitoring - daily BMP, Mg Assessment & Plan (10/19/2024 2:01 PM CDT): First diagnosed on 08/25/2024 when he presented for left eye cataract surgery. Was started on diltiazem with plans for a ANNA cardioversion the next day but converted spontaneously during hospitalization. Was ultimately discharged on metoprolol succinate 50 daily. Referred to EP (Dr. Villalpando). Has been experiencing significant decline in his functional status (chest pain, shortness of breath, heart racing, dizziness) so decision was made to pursue rhythm control strategy. Directly admitted for dofetilide loading. - EP following - baseline QTc 454 ms - started dofetilide 500mcg BID --> QTc 520 ms after second dose - discussed with EP, will reduce dofetilide to 250 mcg BID and continue QTc monitoring 2 hrs after each dose - continue home metop XL 150mg daily - continue home Eliquis - continuous telemetry monitoring - daily BMP, Mg Assessment & Plan (10/18/2024 12:03 PM CDT): First diagnosed on 08/25/2024 when he presented for left eye cataract surgery. Was started on diltiazem with plans for a ANNA cardioversion the next day but converted spontaneously during hospitalization. Was ultimately discharged on metoprolol succinate 50 daily. Referred to EP (Dr. Villalpando). Has been experiencing significant decline in his functional status (chest pain, shortness of breath, heart racing, dizziness) so decision was made to pursue rhythm control strategy. Directly admitted for dofetilide loading. - EP following - baseline QTc 454 ms - start dofetilide 500mcg BID with EKG 2 hrs after each dose - continue home metop XL 150mg daily - continue home Eliquis - continuous telemetry monitoring - daily BMP, Mg Assessment & Plan (10/18/2024 3:26 AM CDT): Presented to the hospital for dofetilide loading and monitoring First diagnosed on 08/25/2024 during inpatient care of his left eye cataract surgery Was started on diltiazem with plans for a ANNA cardioversion in the next day but converted spontaneously during hospitalization Was ultimately discharged on metoprolol succinate 50 daily which gradually increased to 150 mg by his date puller Has been experiencing significant decline in his functional status that referred to hospital for dofetilide loading and monitoring Plan -Reports significant chest pain, shortness of breath, heart racing, dizziness intermittently during day with his afib with RVR episodes, while denies any complains now -Continue home medication metoprolol now -Continuous telemetry monitoring , monitor vitals -Plan discussed with EP team at night, will get ECG for updated QTC and pending results of admission labs for creatinine levels -Patient added to EP Consult Teams list for early in the morning dofetilide loading, cardiology consulted -Continue home medication Eliquis Persistent atrial fibrillation 09/25/2024 Degenerative lumbar spinal stenosis 06/05/2022 Foot drop, unspecified laterality 05/30/2022 Lumbar radiculopathy 12/23/2021 Intervertebral disc disorder with radiculopathy of lumbar region 11/28/2021 Overview (11/28/2021): Added automatically from request for surgery [id number] Right foot drop 09/21/2021 Osteoarthritis 09/21/2021 Pain in limb 09/21/2021 Aortic stenosis 11/02/2020 Hyperlipidemia, unspecified 11/02/2020 Assessment & Plan (10/20/2024 7:40 AM CDT): Continue home medication fenofibrate Assessment & Plan (10/19/2024 7:19 AM CDT): Continue home medication fenofibrate Assessment & Plan (10/18/2024 12:03 PM CDT): Continue home medication fenofibrate Assessment & Plan (10/18/2024 3:26 AM CDT): Unclear documented history of CABG, per some records he had CABG, per some his father had CABG? Not on antiplatelet agent Continue home medication fenofibrate HTN (hypertension) 11/02/2020 Assessment & Plan (10/20/2024 7:40 AM CDT): Continue home medication metoprolol Monitor vitals Assessment & Plan (10/19/2024 7:19 AM CDT): Continue home medication metoprolol Monitor vitals Assessment & Plan (10/18/2024 8:09 AM CDT): Continue home medication metoprolol Monitor vitals Assessment & Plan (10/18/2024 3:26 AM CDT): Continue home medication metoprolol Monitor vitals Obesity 11/02/2020 Additional Health Concerns Active Problems Noted Date Diagnosed Date Initial Follow-Up Appointment 10/21/2024 Barriers to Medication Adherence 10/21/2024 Infection Onset Date Last Indicated Ring Surveillance: C. auris Comment:[id number], swabs on Sunday10/18/2024 10/18/2024 Goals Goal Patient Goal Type Associated Problems Recent Progress Patient-Stated? Author Patient will have kept initial appointment and will show signs of improvement to baseline Care Plan Initial Follow-Up Appointment Dilma Montoya, PROJECTION WELDING MACHINE OPERATOR Note: Pt stated that he has a pulmonology appt on 10/24 and PCP appt on 10/27. Patient will have access to medications needed for healthy outcomes Care Plan Barriers to Medication Adherence Dilma Montoya, PROJECTION WELDING MACHINE OPERATOR Interventions Care Plan Interventions Intervention Entry Date Outcome Follow up with patient 2 days after Post Hospital Visit office visit to ensure understanding of changes and follow-up plan 10/21/2024 Related Goals and Interventions Goal Associated Intervent ions Patient will have kept initi al appointment and will show signs of improvement to baseline Follow up with patient 2 days after Post Hospital Visit office visit to ensure understanding of changes and follow-up plan
--- OUTSIDE RECORDS SUMMARY | 2024-10-24 07:56 | XMS_ITS | Encounter Summary ---
Author Organization [facility] Healthcare Address [address] [place] [address] Care Team Providers Care Change Management Name Role Phone Ozzie Burgos DO Primary Care Provider [phone] Dilma Granados ONLINE HEALTH AND FITNESS COACH Unavailable [phone] Encounter Details Date Type Department Care Team (Late st Contact Info) Description 09/18/2024 Results Follow-Up [facility] Cardiology [address] [place] [id number] Prachi Cordero, PRECISION FARMING COORDINATOR [address] [place] [address] Immunotyping, serum with interpretation, Immunoglobulin free light chains, Urinalysis reflex to microscopic, Additional followed-up results: 2 Social History Tobacco Use Types Packs/Day Years Used Date Smoking Tobacco: Former Cigarettes 2 1 979 - 2008 Smokeless Tobacco: Former [...] on file Legal 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 Gender Identity Not on file Sexual Orientation Not on file Occupation Industry Job Start Date Job End Date Retired Not on file Not on file Not on file documented as of this encounter Plan of Treatment Upcoming Encounters Date Type Department Care Team (Latest Contact Info) Description 12/10/2024 8:45 AM RETENTION MANAGER Hospital Encounter [facility] Electrophysiology Lab [address] [place] [address] Daron Villalpando MD [address] [facility] [address] [place] [id number] Persistent atrial fibrillation (HCC) 12/10/2024 8:45 AM RETENTION MANAGER - 12/10/2024 11:55 AM RETENTION MANAGER Surgery [facility] Electrophysiology Lab [address] [place] [address] Daron Villalpando MD [address] [facility] [address] [place] [address] [phone] ABLATION ATRIAL FIBRILLATION (A-FIB) VIA PULMONARY VEIN ISOLATION [id number] documented as of this encounter Visit Diagnoses Not on filedocumented in this encounter Additional Health Concerns Infection Onset Date Last Indicated Resolved Time COVID: Suspected 10/17/2024 10/18/2024 10/18/2024 4:15 AM CDT Ring Surveillance: C. auris Comment:[id number], swabs on Sunday10/18/2024 10/18/2024 documented as of this encounter Care Teams Change Management Relationship Specialty Start Date End Date Ozzie Burgos DO PCP - General Internal Medicine 09/01/24 Dilma Granados LCSW [address] [facility] ([facility]) Mailstop [id number] [place] [address] [facility] Outpatient Clinical Statistics Manager 10/21/24 documented as of this encounter
--- OUTSIDE RECORDS SUMMARY | 2024-10-24 07:56 | XMS_ITS | Encounter Summary ---
Author Organization [facility] Address [address] [place] [address] Phone Care Team Providers Care Tractor Trailer Driver Name Role Phone Ozzie Burgos DO Primary Care Provider [phone] Dilma Granados FIREWORKS INSPECTOR Unavailable [phone] Encounter Details Date Type Department Care Team (Late st Contact Info) Description 09/23/2024 Results Follow-Up [facility] Medicine Cardiology [address] [facility] Advanced Medicine 8th [place] [address] [place] [address] Daron Villalpando MD [address] [facility] [address] [place] [address] ECG 12 lead Social History Tobacco Use Types Packs/Day Years Used Date Smoking Tobacco: Former Cigarettes 2 06 03 979 - 2008 Smokeless Tobacco: Former Chew [...] on file Legal Sex 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:57 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 Gender Identity Not on file Sexual Orientation Not on file Occupation Industry Job Start Date Job End Date Retired Not on file Not on file Not on file documented as of this encounter Plan of Treatment Upcoming Encounters Date Type Department Care Team (Latest Contact Info) Description 12/10/2024 8:45 AM PHOTONICS TECHNICIAN Hospital Encounter [facility] Electrophysiology Lab [address] [place] [address] Daron Villalpando MD [address] [place] [address] Persistent atrial fibrillation (HCC) 12/10/2024 8:45 AM PHOTONICS TECHNICIAN - 12/10/2024 11:55 AM PHOTONICS TECHNICIAN Surgery [facility] Electrophysiology Lab [address] [place] [address] Daron Villalpando MD [address] [place] [address] [phone] ABLATION ATRIAL FIBRILLATION (A-FIB) VIA PULMONARY VEIN ISOLATION [id number] documented as of this encounter Visit Diagnoses Not on filedocumented in this encounter Additional Health Concerns Infection Onset Date Last Indicated Resolved Time COVID: Suspected 10/17/2024 10/18/2024 10/18/2024 4:15 AM CDT Ring Surveillance: C. auris Comment:[id number], swabs on Sunday10/18/2024 10/18/2024 documented as of this encounter Care Teams Tractor Trailer Driver Relationship Specialty Start Date End Date Ozzie Burgos DO PCP - General Internal Medicine 09/01/24 Dilma Granados LCSW [address] [facility] ([facility]) Mailstop [phone] [place] [address] [facility] Outpatient Impregnator 10/21/24 documented as of this encounter
--- OUTSIDE RECORDS SUMMARY | 2024-10-24 07:56 | XMS_ITS | Clinical Summary ---
Author Organization [facility] Address [address] [place] [address] Care Team Providers Care Chicken Fancier Name Role Phone Ozzie Burgos DO Primary Care Provider [phone] Dilma Granados PRICING ANALYST Unavailable [phone] Allergies No known active allergies Medications fenofibrate choline (TRILIPIX) 135 mg capsule Take 1 capsule (135 mg total) by mouth 2 (two) times a week Sunday and mornings 2 Active omega 9-ybc-yvv-fish oil 1,000 mg (120 mg-180 mg) capsule Take 1 capsule (1,000 mg total) by mouth every morning Active ascorbic acid (VITAMIN C) 500 mg tablet,chewable Take 1 tablet/chew tab (500 mg total) by mouth every morning Active multivit-min/fol ic/vit K/lycop (MEN'S 50 PLUS MULTIVITAMIN ORAL) Take 1 tablet by mouth every morning Active metoprolol XL (TOPROL-XL) 50 mg extended release tabletIndication s:Persistent atrial fibrillation with rapid ventricular response (HCC) Take 3 tablets (150 mg total) by mouth every morning 60 tablet 5 Active Eliquis 5 mg tabletIndication s:Atrial fibrillation, unspecified type (HCC) Take 1 tablet (5 mg total) by mouth 2 (two) times a day 60 tablet 5 Active sacubitriL-valsa rtan (ENTRESTO) 24-26 mg tabletIndication s:chronic heart failure Take 1 tablet by mouth 2 (two) times a day 180 tablet 3 5 Active dofetilide (TIKOSYN) 250 mcg capsuleIndicatio ns:cardiac arrhythmia Take 1 capsule (250 mcg total) by mouth 2 (two) times a day 60 capsule 2 5 Active amLODIPine (NORVASC) 10 mg tablet Take 1 tablet (10 mg total) by mouth every morning 09/26/19 25 Discontinu ed(Therapy completed) hydroCHLOROthiaz bryce (HYDRODIURIL) 25 mg tablet Take 1 tablet (25 mg total) by mouth every morning 09/26/19 25 Discontinu ed(Therapy completed) Active Problems Problem Noted Date Diagnosed Date [...] 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 Has been experiencing significant decline in his [...] (11/28/2021): Added automatically from request for surgery [id number] Right foot drop 09/21/2021 Osteoarthritis 09/21/2021 Pain [...] home medication metoprolol Monitor vitals Obesity 11/02/2020 Encounters Date Type Department Care Team Description 10/22/2024 Telephone [facility] Cardiology [address] [place] [address] Vamsi Avendano MD 10/21/2024 SHOP/CHAP Initial Outreach [facility] OP CASE MANAGEMENT [address] [place] [address] Dilma Granados LCSW 10/21/2024 SHOP/CHAP Initial Eligibility Review [facility] OP CASE MANAGEMENT 1 [place] [address] Dilma Granados LCSW 10/17/2024 8:45 PM CDT - 10/20/2024 5:36 PM CDT Hospital Encounter [facility] 1 [place] [address] Matt Monique MD Dyer, MD Laurence Sarmiento Gizem, MD Discharge Disposition: Discharge to home or self care 10/15/2024 Telephone [facility] Card[facility] [address] [place] [address] 8th [place] [address] [place] [address] Daron Villalpando MD 10/07/2024 Telephone [facility] Cardiology [address] [place] [address] [place] [address] [place] [address] Daron Villalpando MD 09/26/2024 Telephone [facility] Cardiology [address] [place] [address] [place] [phone] Vamsi Avendano MD 09/25/2024 2:00 PM CDT Office Visit [facility] Cardiology [address] [place] [address] [place] [phone] Vamsi Avendano MD Hyperlipidemia, unspecified hyperlipidemia type (Primary Dx); Persistent atrial fibrillation (HCC); Shortness of breath 09/23/2024 Results Follow-Up [facility] Cardiology [address] [place] [address] [place] [address] [place] [address] Daron Villalpando MD ECG 12 lead 09/18/2024 10:45 AM CDT Office Visit [facility] Cardiology [address] [place] [address] [place] [address] [place] [address] Daron Villalpando MD Atrial fibrillation, unspecified type (HCC) (Primary Dx); Persistent atrial fibrillation with rapid ventricular response (HCC); Nonrheumatic aortic valve stenosis; Hypertension, unspecified type 09/18/2024 Results Follow-Up [facility] Cardiology [address] [place] [address] [place] [phone] Prachi Germain NP Immunotyping, serum with interpretation, Immunoglobulin free light chains, Urinalysis reflex to microscopic, Additional followed-up results: 2 09/11/2024 1:35 PM CDT Lab [address] [address] Abnormal echocardiogram 09/09/2024 Results Follow-Up [facility] Cardiology [address] [place] [address] [place] [phone] Prachi Germain NP Transthoracic Echo (TTE) Complete W Doppler/CF 09/09/2024 Telephone [place] [address] [place] [phone] Prachi Germain NP echocardiogram result 09/05/2024 9:15 AM CDT Ancillary Procedure [place] [address] [place] [phone] Persistent atrial fibrillation with rapid ventricular response (HCC) 09/04/2024 Telephone [facility] Cardiology [facility] 8th [place] [address] [place] [phone] Ila Francisco 09/01/2024 11:30 AM CDT Office Visit [place] [address] [place] [phone] Prachi Germain NP Persistent atrial fibrillation with rapid ventricular response (HCC) (Primary Dx); Cardiomyopathy, unspecified type (HCC); Aortic valve stenosis, etiology of cardiac valve disease unspecified; At risk for sleep apnea; BMI 38.0-38.9,adult; Hospital discharge follow-up 09/01/2024 Telephone [place] [address] [place] [phone] Vamsi Avendano MD 2024 Orders Only [place] [address] [place] [phone] Blanca Black NP 08/27/2024 Telephone [place] [address] [place] [phone] Prachi Germain NP 08/25/2024 Orders Only [facility] Information Management [address] [place] [address] Scanning, Provider from Last 3 Months Immunizations Immunization Administration Dates Next Due Influenza, Quadrivalent, Hig h Dose, Preservative Free, Intrr 12/24/2021 Surgical History Surgery Date Site/Laterality Comments REPLACEMENT TOTAL KNEE 02/06/2020 - 02/04/2021 Left Medical History Medical History Date Comments Cervical stenosis (uterine cervix) Hypertension Lumbar stenosis Family History Medical History Relation Name Comments Heart disease Father Cancer Mother Relation Name Status Comments Father Hx of CAD and C ABG, later on diagnosed with a valve problem but declined surgery for it Mother Social History Tobacco Use Types Packs/Day Years Used Date Smoking Tobacco: Former Cigarettes 979 2008 Smokeless Tobacco: Former Chew Quit: 09/2020 Tobacco Cessation:Counseling Given: Not Answered AUDIT-C Answer Date Recorded Q1: How often do you have a drink containing alc ohol? 2-4 times a month 10/19/2022 Q2: How many drinks containi ng alcohol do you have on a typical day when you are drinking? 1 or 2 10/19/2022 Q3: How often do you have si x or more drinks on one occasion? Never 10/19/2022 Social Connection and Isolation Panel Answer Date Recorded In a typical week, how many times do you talk on the phone with family, friends, or neighbors? Three times a week 10/21/2024 How often do you get togethe r with friends or relatives? Three times a week 10/21/2024 How often do you attend chur ch or baptist services? Never 10/21/2024 Do you belong to any clubs o r organizations such as holiness groups, unions, fraternal or athletic groups, or school groups? No 10/21/2024 How often do you attend meet ings of the clubs or organizations you belong to? Never 10/21/2024 Are you , , di vorced, , never , or living with a partner? 10/21/2024 Overall Financial Resource Strain (CARDIA) Answe r Date Recorded How hard is it for you to pa y for the very basics like food, housing, medical care, and heating? Not hard at all 10/21/2024 Hunger Vital Sign Answer Date Recorded Within the past 12 months, y ou worried that your food would run out before you got the money to buy more. Never true 10/22/19 25 Within the past 12 months, t he food you bought just didn't last and you didn't have money to get more. Never true 10/21/2024 Housing Stability Vital Sign Answer Remington e Recorded In the last 12 months, was t here a time when you were not able to pay the mortgage or rent on time? No 10/21/2024 In the past 12 months, how m any times have you moved where you were living? 0 10/21/2024 At any time in the past 12 m ont, were you homeless or living in a [place] (including now)? No 10/21/2024 [facility] Utilities Answer Date Recorded In the past 12 months has th e [employer], gas, oil, or water company threatened to shut off services in your home? No 10/21/2024 Personal Safety Answer Date Recorded Have you ever been in or are you currently in a harmful physical or emotional relationship or is someone making you feel afraid or unsafe? Denies 10/20/2024 Sex and Gender Information Value Date Recorded Sex Assigned at Not on file Legal Sex Male 11:57 PM PER DIEM PHYSICAL THERAPIST Gender Identity Not on file Sexual Orientation Not on file Occupation Industry Job Start Date Job End Date Retired Not on file Not on file Not on file Obstetrics History Last Filed Vital Signs Vital Sign Reading Time Taken Comments Blood Pressure 108/78 10/20/2024 3:25 PM CDT Pulse 90 10/20/2024 3:25 PM CDT Temperature 36.7 C (98.1 F) 10/20/2024 3:25 PM CDT Respiratory Rate 18 10/20/2024 3:25 PM CDT Oxygen Saturation 96% 10/20/2024 3:25 PM CDT Inhaled Oxygen Concentration - - Weight 125 kg (275 lb 9.6 oz) 10/20/2024 4:50 AM CDT Height 182.9 cm (6') 09/25/2024 1:58 PM CDT Body Mass Index 37.38 09/25/2024 1:58 PM CDT Plan of Treatment Upcoming Encounters Date Type Department Care Team (Latest Contact Info) Description 12/10/2024 8:45 AM PER DIEM PHYSICAL THERAPIST Hospital Encounter [facility] Electrophysiology Lab 1 [place] [address] Daron Villalpando MD [address] [address] Persistent atrial fibrillation (HCC) 12/10/2024 8:45 AM PER DIEM PHYSICAL THERAPIST - 12/10/2024 11:55 AM PER DIEM PHYSICAL THERAPIST Surgery [facility] Electrophysiology Lab 1 [facility] [place] [address] Daron Villalpando MD [address] [place] [address] ABLATION ATRIAL FIBRILLATION (A-FIB) VIA PULMONARY VEIN ISOLATION 31294 Health Maintenance Due Date Last Done Comments Colon Cancer Screening-Colonoscopy 1955 Depression Screening 1955 Hepatitis C Screening 1955 Prostate Cancer Screening-PSA 1956 DTaP/Tdap/Td Vaccine (1 - Tdap) 08/29/1967 Hepatitis B Screening 1974 Pneumococcal vaccine 65+ (1 of 2 - PCV) 08/29/1975 Zoster Vaccine (1 of 2) 2006 Abdominal Aortic Aneurysm (AAA) Screen 2021 Well Visit 65+ 2021 Covid-19 Vaccine (3 - season) 2024, 09/03/2020 Influenza Vaccine (#1) 2024 12/24/2021 Fall Risk Assessment 10/20/2025 10/20/2024 Goals Goal Patient Goal Type Associated Problems Recent Progress Patient-Stated? Author Patient will have kept initial appointment and will show signs of improvement to baseline Care Plan Initial Follow-Up Appointment Dilma Montoya LCSW Note: Pt stated that he has a pulmonology appt on 10/24 and PCP appt on 10/27. Patient will have access to medications needed for healthy outcomes Care Plan Barriers to Medication Adherence Dilma Montoya LCSW Medical Devices Implanted Type Area Violin Mechanic Device Identifier Shelf Expiration Date Model / Serial / Lot Knee Replacement Knee [employer] Creo 6.5mm 50mm Cannulated Modular Spine Screw Bone 1067.4650 - [id number] - [id number] Implanted:Qty: 2 on 12/23/2021 by Daron Russell MD PhD at [facility] N/A: Spine Lumbar [employer] 12/23/2021 1067.4650 / 1067.4650 / [employer] 1134.706 Creo Mis 5.5mm 60mm Curve Maciej Spinal Titanium - S1134.7060 - [id number] Implanted:Qty: 2 on 12/23/2021 by Daron Russell MD PhD at [facility] N/A: Spine Lumbar [employer] 12/23/2021 1134.7060 / 1134.7060 / Med[employer]onic Inc Bmp Infuse Sm [id number] - [id number] - [id number] Implanted:Qty: 1 on 12/23/2021 by Daron Russell MD PhD at [facility] N/A: Spine Lumbar Med[employer]onic Inc 02/05/2024 [id number] / [id number] / [id number] Bioventus Osteoamp Select Flowable 2.5cc [facility]-025 - [id number] - [id number] Implanted:Qty: 1 on 12/23/2021 by Daron Russell MD PhD at [facility] N/A: Spine Lumbar BIOV[employer]US 07/27/2024 [facility]-025 / [id number] / [id number] [employer] Spacer Hedron Ia [id number] 17mm 20deg 1212.1317s - S1212.1317s - [id number] Implanted:Qty: 1 on 12/23/2021 by Daron Russell MD PhD at [facility] N/A: Spine Lumbar [employer] 12/23/2021 1212.1317S / 1212.1317S / [employer] 25mm Lumbar [place] Spinal Mis 1135.0025 - S1135.0025 - [id number] Implanted:Qty: 3 on 12/23/2021 by Daron Russell MD PhD at [facility] N/A: Spine Lumbar [employer] 12/23/2021 1135.0025 / 1135.0025 / [employer] 1134.001 Creo Spinal Cap Locking Nonsterile Mis - S1134.0010 - [id number] Implanted:Qty: 4 on 12/23/2021 by Daron Russell MD PhD at [facility] N/A: Spine Lumbar [employer] 12/23/2021 1134.0010 / 1134.0010 / [employer] 1134.01 Creo Mis 30mm Modular Polyaxial Tulip Head Screw Bone - S1134.0100 - [id number] Implanted:Qty: 4 on 12/23/2021 by Daron Russell MD PhD at [facility] N/A: Spine Lumbar [employer] 12/23/2021 1134.0100 / 1134.0100 / [employer] Creo Amp 6.5mm 45mm Cannulated Modular Spine Screw Bone 1067.4645 - S1067.4645 - [id number] Implanted:Qty: 2 on 12/23/2021 by Daron Russell MD PhD at [facility] N/A: Spine Lumbar [employer] 12/23/2021 1067.4645 / 1067.4645 / [employer] Creo Amp 6.5mm 45mm Cannulated Modular Spine Screw Bone 1067.4645 - [id number] Implanted:Qty: 2 on 06/05/2022 by Daron Russell MD PhD at [facility] N/A: Spine Lumbar [employer] 1067.4645 / / [employer] Creo 7.5mm 50mm Cannulated Modular Spine Screw Bone 1067.4750 - [id number] Implanted:Qty: 1 on 06/05/2022 by Daron Russell MD PhD at [facility] N/A: Spine Lumbar [employer] 1067.4750 / / [employer] 1134.706 Creo Mis 5.5mm 60mm Curve Maciej Spinal Titanium - [id number] Implanted:Qty: 2 on 06/05/2022 by Daron Russell MD PhD at [facility] N/A: Spine Lumbar [employer] 1134.7060 / / [employer] 1134.001 Creo Spinal Cap Locking Nonsterile Mis - [id number] Implanted:Qty: 4 on 06/05/2022 by Daron Russell MD PhD at [facility] N/A: Spine Lumbar [employer] 1134.0010 / / [employer] 1134.01 Creo Mis 30mm Modular Polyaxial Tulip Head Screw Bone - [id number] Implanted:Qty: 4 on 06/05/2022 by Daron Russell MD PhD at [facility] N/A: Spine Lumbar [employer] 1134.0100 / / Explanted Type Area Violin Mechanic Device Identifier Shelf Expiration Date Model / Serial / Lot [employer] Rey 1.6mm 500mm Blunt Wire Fixation Nitinol 685.007 - S685.007 - [id number] Explanted:Qty: 4 on 12/23/2021 at [facility] N/A: Spine Lumbar [employer] 12/23/2021 685.007 / 685.007 / [employer] Rey 1.6mm 500mm Blunt Wire Fixation Nitinol 685.007 - [id number] Explanted:Qty: 4 on 06/05/2022 by Daron Russell MD PhD at [facility] N/A: Spine Lumbar [employer] 685.007 / / Description:Temporarily plac ed Procedures Procedure Name Priority Date/Time Associated Diagnosis Comments ECG 12-LEAD Routine 10/20/2024 10:55 AM CDT EGFR Routine 10/20/2024 4:42 AM CDT MAGNESIUM Routine 10/20/2024 4:42 AM CDT BASIC METABOLIC PANEL Routine 10/20/2024 4:42 AM CDT INFECTION PREVENTION GLORIA AURIS PCR, SURVEILLANCE Routine 10/20/2024 4:42 AM CDT ECG 12-LEAD Routine 10/19/2024 11:15 PM CDT EGFR Routine 10/19/2024 3:55 AM CDT MAGNESIUM Routine 10/19/2024 3:55 AM CDT BASIC METABOLIC PANEL Routine 10/19/2024 3:55 AM CDT ECG 12-LEAD Routine 10/18/2024 11:09 PM CDT POTASSIUM, WHOLE BLOOD STAT 10/18/2024 9:14 AM CDT CBC WITHOUT DIFFERENTIAL Routine 10/18/2024 9:14 AM CDT EGFR STAT 10/18/2024 2:39 AM CDT DIFFERENTIAL AUTO STAT 10/18/2024 2:3 9 AM CDT TROPONIN I HIGH-SENSITIVITY STAT 10/18/2024 2:39 AM CDT PRO B-TYPE NATRIURETIC PEPTIDE STAT 10/18/2024 2:39 AM CDT PHOSPHORUS STAT 10/18/2024 2:39 AM CDT MAGNESIUM STAT 10/18/2024 2:39 AM CDT COMPREHENSIVE METABOLIC PANEL STAT 10/18/2024 2:39 AM CDT CBC WITH AUTO DIFFERENTIAL STAT 10/18/2024 2:39 AM CDT RESPIRATORY PATHOGEN PANEL Routine 10/18/2024 2:39 AM CDT XR CHEST 1 VIEW ED Urgent/IP Urgent 10/17/2024 11:13 PM CDT POCT LIPID PANEL Routine 09/25/2024 1:50 PM CDT Hyperlipidemia, unspecified hyperlipidemia type ECG 12-LEAD Routine 09/18/2024 10:39 AM CDT Atrial fibrillation, unspecified type (HCC) IMMUNOFIXATION, URINE Routine 09/11/2024 1:47 PM CDT Abnormal echocardiogram PROTEIN / CREATININE RATIO, URINE, RANDOM Routine 09/11/2024 1:47 PM CDT Abnormal echocardiogram URINALYSIS AND REFLEX TO MICROSCOPIC Routine 09/11/2024 1:47 PM CDT Abnormal echocardiogram IMMUNOGLOBULIN FREE LIGHT CHAINS Routine 09/11/2024 1:47 PM CDT Abnormal echocardiogram IMMUNOTYPING Routine 09/11/2024 1:47 PM CDT Abnormal echocardiogram TRANSTHORACIC ECHO (TTE) COMPLETE W DOPPLER/CF WO CONTRAST Routine 09/05/2024 11:20 AM CDT Persistent atrial fibrillation with rapid ventricular response (HCC) CARDIOLOGY DOCUMENT SCAN Routine 08/26/2024 4:01 PM CDT CARDIOLOGY DOCUMENT SCAN Routine 08/25/2024 3:57 PM CDT CARDIOLOGY DOCUMENT SCAN 08/25/2024 SCAN - LABS 08/25/2024 SCAN - RADIOLOGY/IMAGING 08/25/2024 from Last 3 Months Results * ECG 12 lead (10/20/2024 10:55 AM CDT) Ventricular Rate EKG/Min 108 BPM [facility] QRS-Interval (MSEC) 100 ms [facility] QT-Interval (MSEC) 358 ms [facility] QTc 479 ms [facility] R [place] 22 degrees [facility] T [place] 82 degrees [facility] Diagnosis Atrial fibrillation with rapid ventricular response with premature ventricular or aberrantly conducted complexes Abnormal ECG Confirmed by Karlos Bright MD ([id number]) on 10/21/2024 2:19:01 AM [facility] 10/20/2024 10:5 5 AM CDT 10/21/2024 2:19 AM CDT us Ronald Hope MD ECG ORDERABLES Final Result [facility] * Infection Prevention Gloria auris PCR, surveillance Axilla/Groin (10/20/2024 4:42 AM CDT) Gloria auris DNA Not Detected Not Detected [facility] Comment: Interpretive Data Testing performed by [facility] Molecular Infectious Disease Laboratory using the Helen olesya 6800 Gloria auris assay. This assay detects DNA from Gloria auris using Real-Time PCR. This assay is laboratory developed and is not cleared by the [place] Food and Drug Administration. The performance characteristics have been verified by the [facility] Infectious Disease Laboratory. Axilla/Groin 10/20/2024 4:42 AM CDT 10/20/2024 5:25 AM CDT Narrative DREW [facility] - 10/20/2024 1:30 PM CDT Order placed by [facility] due to ring surveillance. us Instant Order Generic Provider LAB MICROBIOLOGY - GENERAL ORDERABLES Final Result [facility] [place] [address] [facility] * eGFR (10/20/2024 4:42 AM CDT) Pathologist [facility] eGFR 83 >=60 mL/min/1. 73 m2 Comment: Interpretive Data Reference Interval Normal >/= 90 mL/min/1.73m2 Mildly decreased* 60 - 89 mL/min/1.73m2 Mildly to moderately decreased 45 - 59 mL/min/1.73m2 Moderately to severely decreased 30 - 44 mL/min/1.73m2 Severely decreased 15 - 29 mL/min/1.73m2 Kidney Failure < 15 mL/min/1.73m2 *Relative to young adult level Estimated glomerular filtration rate is determined by the 2020 CKD-EPI equation recommended by the National Kidney Foundation (A Unifying Approach to GFR Estimation: Recommendations of the NKF-ASK Task Force on Reassessing the Inclusion of Race in Diagnosing Kidney Disease, JASN 2020). The CKD-EPI equation should not be used for patients with unstable renal function and has not been validated in children and those over 70. Current interpretive data was last reviewed 2020. Blood 10/20/2024 4:42 AM CDT 10/20/2024 5:36 AM CDT Ronald Hope MD LAB BLOOD ORDERABLES Final Re sult Performing Organization Address City/[facility]/ZIP Co de Phone Number [facility] Department [place] [address] * Magnesium (10/20/2024 4:42 AM CDT) Pathologist [facility] Magnesium 2.1 1.4 - 2.5 mg/dL Blood 10/20/2024 4:42 AM CDT 10/20/2024 5:36 AM CDT Ronald Hope MD LAB BLOOD ORDERABLES Final Re sult Performing Organization Address [facility] de Phone Number [facility] [place] [address] * Basic metabolic panel (10/20/2024 4:42 AM CDT) [facility] Sodium 144 135 - 145 mmol/L Potassium, pl 3.9 3.3 - 4.9 mmol/L [facility] Chloride 110 97 - 110 mmol/L [facility] CO2 24 22 - 32 mmol/L [facility] Anion gap 10 2 - 15 mmol/L [facility] BUN 18 6 - 25 mg/dL [facility] Creatinine 0.99 0.80 - 1.30 mg/dL [facility] Glucose 97 70 - 199 mg/dL [facility] Comment: Interpretive Data Fasting glucose >/= 126 mg/dl is diagnostic for diabetes. Fasting is defined as no caloric intake for at least 8 hours. Fasting glucose between 100 mg/dl to 125 mg/dl is diagnostic of prediabetes. In a patient with classic symptoms of hyperglycemia or hyperglycemic crisis, a random glucose >/= 200 mg/dl is diagnostic for diabetes. In the absence of unequivocal hyperglycemia, results should be confirmed by repeat testing. The classification and Diagnosis of Diabetes Diabetes Care 2021; 46: S19-S40. Current interpretive data was last revised 2022. Calcium 8.9 8.5 - 10.3 mg/dL [facility] Blood 10/20/2024 4:42 AM CDT 10/20/2024 5:36 AM CDT Ronald Hope MD LAB BLOOD ORDERABLES Final Re sult Performing Organization Address City/[facility]/ZIP Co de Phone Number [facility] Department [place] [address] * ECG 12 lead (10/19/2024 11:15 PM CDT) Ventricular Rate EKG/Min 106 BPM [facility] Atrial Rate 93 BPM [facility] QRS-Interval (MSEC) 102 ms [facility] QT-Interval (MSEC) 372 ms [facility] QTc 494 ms [facility] R [place] 23 degrees [facility] T [place] 60 degrees [facility] Diagnosis Atrial fibrillation Otherwise normal ECG When compared with ECG of 18-OCT-2024 23:09, (unconfirmed) no significant change Confirmed by TOMY CHERY M.D ([id number]) on 10/20/2024 3:28:40 PM [facility] 10/19/2024 11:1 5 PM CDT 10/20/2024 3:28 PM CDT Ronald Hope MD ECG ORDERABLES Final Result Performing Organization Address [facility] de Phone Number [facility] * eGFR (10/19/2024 3:55 AM CDT) eGFR 77 >=60 mL/min/1. 73 m2 Comment: Interpretive Data Reference Interval Normal >/= 90 mL/min/1.73m2 Mildly decreased* 60 - 89 mL/min/1.73m2 Mildly to moderately decreased 45 - 59 mL/min/1.73m2 Moderately to severely decreased 30 - 44 mL/min/1.73m2 Severely decreased 15 - 29 mL/min/1.73m2 Kidney Failure < 15 mL/min/1.73m2 *Relative to young adult level Estimated glomerular filtration rate is determined by the 2020 CKD-EPI equation recommended by the National Kidney Foundation (A Unifying Approach to GFR Estimation: Recommendations of the NKF-ASK Task Force on Reassessing the Inclusion of Race in Diagnosing Kidney Disease, JASN 202). The CKD-EPI equation should not be used for patients with unstable renal function and has not been validated in children and those over 70. Current interpretive data was last reviewed 2020. Blood 10/19/2024 3:55 AM CDT 10/19/2024 5:30 AM CDT Ronald Hope MD LAB BLOOD ORDERABLES Final Re sult Performing Organization Address City/[facility]/ZIP Co de Phone Number [facility] [place] [place] [address] * Magnesium (10/19/2024 3:55 AM CDT) Pathologist [facility] Magnesium 2.1 1.4 - 2.5 mg/dL Blood 10/19/2024 3:55 AM CDT 10/19/2024 5:30 AM CDT Ronald Hope MD LAB BLOOD ORDERABLES Final Re sult Performing Organization Address [facility] Co de Phone Number [facility] [place] [employer] [place] [address] * Basic metabolic panel (10/19/2024 3:55 AM CDT) Sodium 144 135 - 145 mmol/L Potassium, pl 4.0 3.3 - 4.9 mmol/L [facility] Comment:Repeated and Verifie d Chloride 110 97 - 110 mmol/L [facility] CO2 23 22 - 32 mmol/L [facility] Anion gap 11 2 - 15 mmol/L [facility] BUN 21 6 - 25 mg/dL [facility] Creatinine 1.05 0.80 - 1.30 mg/dL [facility] Glucose 95 70 - 199 mg/dL [facility] Comment: Interpretive Data Fasting glucose >/= 126 mg/dl is diagnostic for diabetes. Fasting is defined as no caloric intake for at least 8 hours. Fasting glucose between 100 mg/dl to 125 mg/dl is diagnostic of prediabetes. In a patient with classic symptoms of hyperglycemia or hyperglycemic crisis, a random glucose >/= 200 mg/dl is diagnostic for diabetes. In the absence of unequivocal hyperglycemia, results should be confirmed by repeat testing. The classification and Diagnosis of Diabetes Diabetes Care 2021; 46: S19-S40. Current interpretive data was last revised 2022. Calcium 9.1 8.5 - 10.3 mg/dL [facility] Blood 10/19/2024 3:55 AM CDT 10/19/2024 5:30 AM CDT Ronald Hope MD LAB BLOOD ORDERABLES Final Re sult [facility] [place] [address] * ECG 12 lead (10/18/2024 11:09 PM CDT) Ventricular Rate EKG/Min 106 BPM [facility] QRS-Interval (MSEC) 100 ms [facility] QT-Interval (MSEC) 392 ms [facility] QTc 520 ms [facility] R [place] 25 degrees [facility] T [place] 60 degrees [facility] Diagnosis Atrial fibrillation with rapid ventricular response with premature ventricular or aberrantly conducted complexes Prolonged QT Abnormal ECG When compared with ECG of 15-DEC-2021 11:54, Atrial fibrillation has replaced Sinus rhythm Vent. rate has increased BY 49 BPM Nonspecific T wave abnormality now evident in Anterolateral leads QT has lengthened Confirmed by ESTUARDO ANGELA M.D ([id number]) on 10/21/2024 1:46:05 PM [facility] 10/18/2024 11:0 9 PM CDT 10/21/2024 1:46 PM CDT us Ronald Hope MD ECG ORDERABLES Final Result [facility] * Potassium, whole blood (10/18/2024 9:14 AM CDT) Potassium, bld 4.0 3.3 - 4.9 mmol/L Blood 10/18/2024 9:14 AM CDT 10/18/2024 9:41 AM CDT Angie Fabian MD LAB BLOOD ORDERABLES Final Re sult Performing Organization Address [facility] Co de Phone Number [facility] [place] [place] [address] * CBC without differential (10/18/2024 9:14 AM CDT) Pathologist [facility] WBC 7.21 3.80 - 9.90 K/cumm Hgb 15.2 13.0 - 17.5 g/dL [facility] Hct 45.1 38.9 - 50.3 % [facility] Plt 194 150 - 400 K/cumm [facility] MPV 11.5 9.1 - 12.3 fL [facility] RBC 4.87 4.30 - 5.80 M/cumm [facility] MCV 92.6 81.3 - 96.4 fL [facility] MCH 31.2 27.1 - 33.3 pg [facility] MCHC 33.7 32.3 - 35.7 g/dL [facility] RDW CV 13.5 11.1 - 14.9 % [facility] RDW SD 45.8 35.7 - 48.1 fL [facility] NRBC abs 0.00 0.00 - 0.01 K/cumm [facility] Blood 10/18/2024 9:14 AM CDT 10/18/2024 9:57 AM CDT Ronald Hope MD LAB BLOOD ORDERABLES Final Re sult Performing Organization Address City/[facility]/ZIP Co de Phone Number [facility] Department [place] [address] * Troponin I high-sensitivity (10/18/2024 2:39 AM CDT) Trop I hs 13 <=35 ng/L Comment: Interpretive Data For further hscTnI resources including the diagnostic algorithm and an aid in interpretation, copy and paste this link: [email or web address] Current Interpretive Data last revised 2019. Blood 10/18/2024 2:39 AM CDT 10/18/2024 3:14 AM CDT us Tanisha Dang MD LAB BLOOD ORDERABLES Final Resul t [facility] [place] [address] * eGFR (10/18/2024 2:39 AM CDT) eGFR 76 >=60 mL/min/1. 73 m2 Comment: Interpretive Data Reference Interval Normal >/= 90 mL/min/1.73m2 Mildly decreased* 60 - 89 mL/min/1.73m2 Mildly to moderately decreased 45 - 59 mL/min/1.73m2 Moderately to severely decreased 30 - 44 mL/min/1.73m2 Severely decreased 15 - 29 mL/min/1.73m2 Kidney Failure < 15 mL/min/1.73m2 *Relative to young adult level Estimated glomerular filtration rate is determined by the 2020 CKD-EPI equation recommended by the National Kidney Foundation (A Unifying Approach to GFR Estimation: Recommendations of the NKF-ASK Task Force on Reassessing the Inclusion of Race in Diagnosing Kidney Disease, JASN 2020). The CKD-EPI equation should not be used for patients with unstable renal function and has not been validated in children and those over 70. Current interpretive data was last reviewed 2020. Blood 10/18/2024 2:39 AM CDT 10/18/2024 3:14 AM CDT us Tanisha Dang MD LAB BLOOD ORDERABLES Final Resul t [facility] [place] [address] * Differential, auto (10/18/2024 2:39 AM CDT) Neutrophil abs 4.67 1.50 - 6.50 K/cumm Imm gran abs 0.03 0.00 - 0.10 K/cumm [facility] Lymphocyte abs 1.55 0.80 - 3.30 K/cumm [facility] Monocyte abs 0.51 0.20 - 0.80 K/cumm [facility] Eosinophil abs 0.10 0.00 - 0.50 K/cumm [facility] Basophil abs 0.04 0.00 - 0.10 K/cumm [facility] Neutrophil pct 67.7 % [facility] Comment: Interpretive Data Percent cell count reference ranges are not reported, since discordance with absolute values may lead to misinterpretation of CBC data. Current Interpretive Data was last revised on 2017. Imm gran pct 0.4 % [facility] Comment: Interpretive Data Percent cell count reference ranges are not reported, since discordance with absolute values may lead to misinterpretation of CBC data. Current Interpretive Data was last revised on 2017. Lymphocyte pct 22.5 % [facility] Comment: Interpretive Data Percent cell count reference ranges are not reported, since discordance with absolute values may lead to misinterpretation of CBC data. Current Interpretive Data was last revised on 2017. Monocyte pct 7.4 % [facility] Comment: Interpretive Data Percent cell count reference ranges are not reported, since discordance with absolute values may lead to misinterpretation of CBC data. Current Interpretive Data was last revised on 2017. Eosinophil pct 1.4 % [facility] Comment: Interpretive Data Percent cell count reference ranges are not reported, since discordance with absolute values may lead to misinterpretation of CBC data. Current Interpretive Data was last revised on 2017. Basophil pct 0.6 % [facility] Comment: Interpretive Data Percent cell count reference ranges are not reported, since discordance with absolute values may lead to misinterpretation of CBC data. Current Interpretive Data was last revised on 2017. Blood 10/18/2024 2:39 AM CDT 10/18/2024 3:14 AM CDT us Tanisha Dang MD LAB BLOOD ORDERABLES Final Resul t [facility] Department [place] [address] * (ABNORMAL) Pro B-type natriuretic peptide (10/18/2024 2:39 AM CDT) NT-proBNP 7,380(H) <=300 pg/mL Comment: Interpretive Comments: A. Dyspnea in Acute Care Setting All Ages: < 300 pg/ml, acute heart failure unlikely. < 50 yrs: 300 - 450 pg/ml, further investigation warranted. > 450 pg/ml, acute heart failure likely. 50 - 74 yrs: 300 - 900 pg/ml, further investigation warranted. > 900 pg/ml, acute heart failure likely . > or = 75 yrs: 450 - 1800 pg/ml, further investigation warranted. > 1800 pg/ml, acute heart failure likely. B. Non-acute Setting < 75 yrs < 125 pg/ml, rules out heart failure. > or = 125 pg/ml, further investigation warranted. > or = 75 yrs < 450 pg/ml, rules out heart failure. > or = 450 pg/ml, further investigation warranted. - Knowledge of each individual patient's NT-proBNP range may be more useful than using similar cut-points for every patient. Please note that marked elevations in NT-proBNP levels may be observed in state other than Left Ventricular Congestive Failure, including: acute coronary syndromes, right heart strain/failure (including pulmonary embolism and cor pulmonale), critical illness, renal failure, as well as advanced age. - References: 1. Lakhwinder FERRARO et.al. Eur Heart J. 2006:27:330-337. 2. Zachary VICTORIA, Susanne HEARD. J. AM Narda Cardiol: Cardiovasc Imag. 2009;2: 216- 225. Interpretive Data Last Revised Date: 2017. Blood 10/18/2024 2:39 AM CDT 10/18/2024 3:14 AM CDT Tanisha Dang MD LAB BLOOD ORDERABLES Final Resul t [facility] Department [place] [address] * Respiratory pathogen panel Nasopharyngeal (10/18/2024 2:39 AM CDT) Pathologist [facility] Influenza A RNA Not Detected Not Detected Influenza B RNA Not Detected Not Detected [facility] RSV RNA Not Detected Not Detected [facility] COVID-19 RNA Not Detected Not Detected [facility] Coronavirus 229E RNA Not Detected Not Detected [facility] Coronavirus HKU1 RNA Not Detected Not Detected [facility] Coronavirus NL63 RNA Not Detected Not Detected [facility] Coronavirus OC43 RNA Not Detected Not Detected [facility] Adenovirus DNA Not Detected Not Detected [facility] Metapneumovirus RNA Not Detected Not Detected [facility] Rhinovirus/Enterov irus RNA Not Detected Not Detected [facility] Parainfluenza 1 RNA Not Detected Not Detected [facility] Parainfluenza 2 RNA Not Detected Not Detected [facility] Parainfluenza 3 RNA Not Detected Not Detected [facility] Parainfluenza 4 RNA Not Detected Not Detected [facility] B. pertussis DNA Not Detected Not Detected [facility] B. parapertussis DNA Not Detected Not Detected [facility] C. pneumoniae DNA Not Detected Not Detected [facility] M. pneumoniae DNA Not Detected Not Detected [facility] Nasopharyngeal 10/18/2024 2: 39 AM CDT 10/18/2024 3:17 AM CDT Narrative [facility] - 10/18/2024 4:14 AM CDT Is the Patient experiencing symptoms consistent with COVID?->Yes Surveillance testing for transplant patient?->No Interpretive Data The [employer] FilmArray Respiratory Panel (RP2.1) assay is a multiplexed real-time PCR based nucleic acid test capable of simultaneous qualitative detection and identification of multiple respiratory viral and bacterial nucleic acids, including SARS Coronavirus 2 (the causative agent of COVID-19). The following bacteria, viruses and virus subtypes can be identified using the FilmArray RP2.1 assay: Bordetella pertussis, Bordetella parapertussis, Chlamydia pneumoniae, Mycoplasma pneumoniae, Adenovirus, SARS Coronavirus 2, seasonal coronaviruses (Coronavirus HKU1, Coronavirus NL63, Coronavirus 229E, and Coronavirus OC43), Influenza A, Influenza A subtype H1, Influenza A subtype H3, Influenza A subtype 2009 H1, Influenza B, Metapneumovirus, Parainfluenza 1, Parainfluenza 2, Parainfluenza 3, Parainfluenza 4, RSV, Rhinovirus/Enterovirus. Due to the genetic similarity between human Rhinovirus and Enterovirus, the FilmArray RP2.1 assay cannot reliably differentiate them. Coronavirus OC43 may cross-react with some isolates of Coronavirus HKU1. A dual positive result may be due to cross-reactivity or may indicate a co- infection. The detection and identification of specific viral and bacterial nucleic acids from individuals exhibiting signs and symptoms of a respiratory infection aids in the diagnosis of respiratory infection if used in conjunction with other clinical and epidemiological information. The results of this test should not be used as the sole basis for diagnosis, treatment, or other management decisions. Negative results in the setting of a respiratory illness may be due to infection with pathogens that are not detected by this test. Positive results do not rule out infection/co-infection with other organisms. The agent(s) detected by the FilmArray RP2.1 may not be the definite cause of disease. Additional testing (lab, imaging, etc.) may be necessary when evaluating a patient with possible respiratory tract infection. The FilmArray RP2.1 assay has FDA clearance for testing of HYDRAULIC CORRUGATING MACHINE OPERATOR swabs. The performance of additional specimen types has been assessed by the performing laboratory. The performance characteristics of this assay have been determined by [facility] Molecular Infectious Disease Laboratory. Current interpretive data was last revised on 21. us Tanisha Dang MD LAB MICROBIOLOGY - GENERAL ORDER QUINTON Final Result [facility] [place] [address] * CBC with auto differential (10/18/2024 2:39 AM CDT) [facility] WBC 6.90 3.80 - 9.90 K/cumm Hgb 14.4 13.0 - 17.5 g/dL [facility] Hct 42.3 38.9 - 50.3 % [facility] Plt 196 150 - 400 K/cumm [facility] MPV 12.2 9.1 - 12.3 fL [facility] RBC 4.57 4.30 - 5.80 M/cumm [facility] MCV 92.6 81.3 - 96.4 fL [facility] MCH 31.5 27.1 - 33.3 pg [facility] MCHC 34.0 32.3 - 35.7 g/dL [facility] RDW CV 13.6 11.1 - 14.9 % [facility] RDW SD 45.7 35.7 - 48.1 fL [facility] NRBC abs 0.00 0.00 - 0.01 K/cumm [facility] Blood 10/18/2024 2:39 AM CDT 10/18/2024 3:14 AM CDT us Tanisha Dang MD LAB BLOOD ORDERABLES Final Resul t Performing Organization Address City/[facility]/ZIP Co de Phone Number [facility] [place] [place] [address] * Phosphorus (10/18/2024 2:39 AM CDT) [facility] Phosphorus, pl 3.6 2.3 - 4.5 mg/dL Comment:Hemolyzed; result ma y be falsely elevated Blood 10/18/2024 2:39 AM CDT 10/18/2024 3:14 AM CDT us Tanisha Dang MD LAB BLOOD ORDERABLES Final Resul t Performing Organization Address City/[facility]/ZIP Co de Phone Number [facility] [place] [employer] [place] [address] * Magnesium (10/18/2024 2:39 AM CDT) Magnesium 2.2 1.4 - 2.5 mg/dL Blood 10/18/2024 2:39 AM CDT 10/18/2024 3:14 AM CDT us Tanisha Dang MD LAB BLOOD ORDERABLES Final Resul t [facility] Department [place] [address] * (ABNORMAL) Comprehensive metabolic panel (10/18/2024 2:39 AM CDT) Pathologist [facility] Sodium 141 135 - 145 mmol/L Potassium, pl See Comment 3.3 - 4.9 mmol/L [facility] Comment:Credited; Hemolyzed Specimen Chloride 108 97 - 110 mmol/L [facility] CO2 21(L) 22 - 32 mmol/L [facility] Anion gap 12 2 - 15 mmol/L [facility] BUN 20 6 - 25 mg/dL [facility] Creatinine 1.07 0.80 - 1.30 mg/dL [facility] Glucose 90 70 - 199 mg/dL [facility] Comment: Interpretive Data Fasting glucose >/= 126 mg/dl is diagnostic for diabetes. Fasting is defined as no caloric intake for at least 8 hours. Fasting glucose between 100 mg/dl to 125 mg/dl is diagnostic of prediabetes. In a patient with classic symptoms of hyperglycemia or hyperglycemic crisis, a random glucose >/= 200 mg/dl is diagnostic for diabetes. In the absence of unequivocal hyperglycemia, results should be confirmed by repeat testing. The classification and Diagnosis of Diabetes Diabetes Care 202; 46: S19-S40. Current interpretive data was last revised 2022. Calcium 9.5 8.5 - 10.3 mg/dL [facility] Bilirubin, total 0.9 0.1 - 1.2 mg/dL [facility] Protein, pl 6.5 6.5 - 8.5 g/dL [facility] Albumin 3.7 3.5 - 5.0 g/dL [facility] Alk phos 51 40 - 130 Units/L [facility] Comment:Hemolyzed; result ma y be falsely decreased ALT See Comment 7 - 55 Units/L [facility] Comment:Credited; Hemolyzed Specimen AST See Comment 10 - 50 Units/L [facility] Comment:Credited; Hemolyzed Specimen Blood 10/18/2024 2:39 AM CDT 10/18/2024 3:14 AM CDT us Tanisha Dang MD LAB BLOOD ORDERABLES Final Resul t [facility] [place] [address] * XR Chest 1 View (10/17/2024 11:13 PM CDT) Anatomical Region Laterality Modality Body, Chest N/A Computed Radiogr aphy 10/18/2024 9:29 AM CDT Impressions 10/18/2024 10:20 AM CDT The current study is compared with the prior radiograph dated 12/25/2021. There is a possible small left pleural effusion. Left basilar opacities likely represent atelectasis or aspiration changes. The right lung is clear. There is no pneumothorax. The heart and mediastinal contours are stable. Dictated by: Vishnu Tran M.D. The radiology attending physician has personally reviewed this study, and had reviewed and/or edited this written report and agrees with it. Electronically signed by: Kavon Carreno M.D. Narrative 10/18/2024 10:20 AM CDT EXAMINATION: 1 view chest radiograph Procedure Note Kavon Carreno MD - 10/18/2024 EXAMINATION: 1 view chest radiograph IMPRESSION: The current study is compared with the prior radiograph dated 12/25/2021. There is a possible small left pleural effusion. Left basilar opacities likely represent atelectasis or aspiration changes. The right lung is clear. There is no pneumothorax. The heart and mediastinal contours are stable. Dictated by: Vishnu Tran M.D. The radiology attending physician has personally reviewed this study, and had reviewed and/or edited this written report and agrees with it. Electronically signed by: Kavon Carreno M.D. us Tanisha Dang MD IMG XR PROCEDURES Final Result * (ABNORMAL) POCT lipid panel (09/25/2024 1:50 PM CDT) [facility] Cholesterol, POC 149 <200 MG/DL HDL, POC 31(A) >=40 mg/dL Triglycerides, POC 100 <=149 mg/dL LDL Cholesterol POC 98 <=129 mg/dL Chol/HDL Ratio, POC 3.1 NONE Non-HDL Cholesterol, POC 118 NONE mg/dL Cholesterol Total, POC 149 30 - 199 mg/dL Capillary blood 09/25/2024 1 :50 PM CDT us Vasmi Avendano MD POINT OF CARE TEST ORDERABLES Fi nal Result * ECG 12 lead (09/18/2024 10:39 AM CDT) us Daron Villalpando MD ECG ORDERABLES Edited Result - Final * Immunotyping, serum with interpretation (09/11/2024 1:47 PM CDT) [facility] Immunosubtraction Please see comment Comment: NO PARAPROTEIN DETECTED Reviewed and signed by Sudha Foy MD, PhD 09/12/2024 Testing performed by: [facility], [address] [facility] [place] [address] Blood 09/11/2024 1:47 PM CDT 09/11/2024 9:26 PM CDT us Prachi Germain NP LAB BLOOD ORDERABLES Nat castaneda Result [facility] [id number] [facility] Department [place] [address] * Immunoglobulin free light chains (09/11/2024 1:47 PM CDT) Alsip/Lambda ratio [facility] 1.09 0.26 - 1.65 Comment: Interpretive Data The Binding Site FreeLite assay procedure was used. Results from different manufacturers or methods may not be comparable. Serial testing should be performed using the same methods and instrumentation. Current Interpretive Data was last revised on 2023. Testing performed by: [facility], [address] [place]., [address] Alsip free light chain BJ 1.20 0.33 - 1.94 mg/dL [facility] Comment: Interpretive Data The Binding Site FreeLite assay procedure was used. Results from different manufacturers or methods may not be comparable. Serial testing should be performed using the same methods and instrumentation. Current Interpretive Data was last revised on 2023. Testing performed by: [facility], [address] [place]., [address] Lambda free light chain BJ 1.10 0.57 - 2.63 mg/dL [facility] Comment: Interpretive Data The Binding Site FreeLite assay procedure was used. Results from different manufacturers or methods may not be comparable. Serial testing should be performed using the same methods and instrumentation. Current Interpretive Data was last revised on 2023. Testing performed by: [facility], [address] [place]., [address] Blood 09/11/2024 1:47 PM CDT 09/11/2024 9:25 PM CDT Prachi Germain NP LAB BLOOD ORDERABLES Nat l Result [facility] [address] [facility] Department [place] [address] * (ABNORMAL) Urinalysis reflex to microscopic (09/11/2024 1:47 PM CDT) Color, ur Yellow Yellow Clarity, ur Clear Clear [facility] Specific gravity, ur 1.017 1.003 - 1.030 [facility] GARCÍA pH, urine 7.0 [facility] Comment: Interpretive Data U rine pH is affected by diet, medications, systemic acid-base disturbances, and renal tubular function. pH may affect urinary stone formation. For example, urine pH below 6.0 may help reduce the tendency for calcium phosphate stones and pH greater than 6.0 may reduce the tendency for uric acid stone formation. Source: [facility] Current Interpretive Data was last revised on 2017 Protein, ur ql Negative Negative [facility] Glucose, ur ql Negative Negative [facility] Ketones, ur Negative Negative [facility] Bilirubin, ur Negative Negative [facility] Blood, ur Negative Negative [facility] Urobilinogen, ur 2.0(A) <2.0 mg/dL [facility] Nitrite, ur Negative Negative [facility] Leukocyte esterase, ur Negative Negative [facility] UA reflex comment Reflex conditions for microscopic UA not met. [facility] Urine 09/11/2024 1:47 PM CDT 09/11/2024 5:57 PM CDT Prachi Germain NP LAB URINE ORDERABLES Nat l Result Performing Organization Address [facility] Co de Phone Number [address] [employer] [place] [address] * Immunofixation, urine with interpretation (09/11/2024 1:47 PM CDT) Immunofixation, Ur Please see comment Comment: NO PARAPROTEIN DETECTED Reviewed and signed by Sudha Foy MD, PhD 09/12/2024 Testing performed by: [facility], [address] [place]., [address] Urine 09/11/2024 1:47 PM CDT 09/12/2024 9:59 AM CDT Prachi Germain HYDRAULIC CORRUGATING MACHINE OPERATOR LAB URINE ORDERABLES Nat l Result Performing Organization Address City/[facility]/ZIP Co de Phone Number [address] [place] [employer] [place] [address] * Protein / creatinine ratio, urine, random (09/11/2024 1:47 PM CDT) [facility] Protein, ur, quant 17.0 mg/dL Comment: Interpretive Data No reference range established. Current interpretive data was last revised 2018. Creatinine Ur 138.0 mg/dL DREW GARCÍA Comment: Interpretive Data No reference range established. Current interpretive data was last revised 2018. Protein/creatinin e ratio 123.2 0.0 - 180.0 mg/g CR DREW GARCÍA Urine 09/11/2024 1:47 PM CDT 09/11/2024 5:57 PM CDT us Prachi Germain NP LAB URINE ORDERABLES Nat castaneda Result DREW [address] [facility] Department [place] [address] * TRANSTHORACIC ECHO (TTE) COMPLETE W DOPPLER/CF WO CONTRAST (09/05/2024 11:20 AM CDT) [facility] Estimated EF 40-45 % CONS SCIMAGE EF Mod BP 43 % CONS SCIMAGE Anatomical Region Laterality Modality Ultrasound 09/05/2024 9:24 AM CDT Narrative 09/05/2024 12:54 PM CDT [facility] Cardiology [address] [facility] [address], [place] [address] [address] [facility] [address], [place] [address] P:[phone] P:[phone] Echocardiographic Report Patient Name: BINH ADAN E : 1955 Study Date: 09/05/2024 9:24:54 AM Gender: M Marketing Support Assistant: Melissa Araya)(CT), [facility] Location: [place] Ref Provider: PRACHI GERMAIN Height(Cm): 183 BSA: 2.55 Weight(Kg): 127.5 Heart Rate: 127 BP: 124 / 81 Quality: Good Order Provider: PRACHI GERMAIN PROCEDURES: Echocardiographic Report: Transthoracic echocardiogram with complete 2D, M-Mode, and color Doppler examination. With Strain Analysis. INDICATIONS: I48.19 Other persistent atrial fibrillation. MEASUREMENTS: 2D/MM Value Range Doppler Value Range EF Mod BP 43 % [ 52 - 72 ] LENA Vmax 1.12 cm2 [ 2.00 - 4.00 ] Estimated EF 40-45 % AV Mean PG 27 mmHg LV GLS -4.37 % AV Peak Henri 3.26 m/s [ 1.00 - 1.70 ] LVIDd 2D 6.14 cm [ 4.20 - 5.80 ] AV Peak PG 42 mmHg LVIDs 2D 4.81 cm [ 2.50 - 4.00 ] AV VTI 63.13 cm LVPWd 2D 1.19 cm [ 0.60 - 1.00 ] LVOT Diam 2.07 cm [ 1.70 - 2.10 ] IVSd 2D 1.16 cm [ 0.60 - 1.00 ] LVOT Peak Henri 1.08 m/s [ 0.70 - 1.10 ] AoR Diam 2D 3.75 cm [ 3.10 - 3.70 ] LVOT VTI 24.09 cm LA Volume 85.05 ml [ 18.00 - 58.00 ] PV Peak Henri 1.00 m/s [ 0.40 - 0.80 ] LA Volume Index 33 cc/m2 [ 16 - 28 ] TR Peak Henri 2.73 m/s [ 1.00 - 2.80 ] RA Volume 55.17 ml TR Peak PG 30 mmHg RV S` 10.12 mmHg Tapse 2.26 cm [ 1.71 - 5.00 ] 2D/MM Value Range Doppler Value Range - FINDINGS: Interpretation Site: Exam was interpreted at [facility]. Left Ventricle: Moderate concentric left ventricular hypertrophy. Moderate enlargement of left ventricle cavity. Moderate global left ventricular systolic dysfunction. Diastolic dysfunction is present. Ejection fraction is measured at 43 %. Ejection Fraction is visually estimated to be 40-45 %. Global Longitudinal Strain is -4 %. GLS is abnormal. Apical Sparing Pattern seen with Strain Imaging, consider Cardiac Amyloid. Right Ventricle: Normal right ventricular size. Normal right ventricular systolic function. Left Atrium: There is severe enlargement of left atrium. Right Atrium: The right atrium is normal in size. Atrial Septum: Normal atrial septum. Mitral Valve: Mild mitral annular calcification. Mild to moderate mitral valve regurgitation. There is no hemodynamically significant mitral stenosis by Doppler. Aortic Valve: Moderate aortic stenosis. Peak Velocity of 3.30 m/s. Mean gradient of 27.0 mmHg. Valve area of 1.1 cm2. Aortic cusps appear severely calcified. Trileaflet aortic valve. Mild to moderate aortic valve regurgitation. Tricuspid Valve: Normal appearance of the tricuspid valve. Moderate pulmonary hypertension based on right ventricular systolic pressure. Estimated peak RVSP is 45-50 mmHg. Mild tricuspid regurgitation. Pulmonic Valve: Normal appearance of the pulmonic valve. No pulmonic stenosis. Mild pulmonic regurgitation. Pericardium: Normal pericardium with no significant pericardial effusion. Aorta: Ascending aorta is mildly dilated. Ascending Aorta 3.9 cm. IVC: Dilated IVC with respiratory collapse consistent with elevated right atrial pressure (10-15 mmHg). CONCLUSIONS: Moderate concentric left ventricular hypertrophy. Moderate enlargement of left ventricle cavity. Moderate global left ventricular systolic dysfunction. Diastolic dysfunction is present. Ejection fraction is measured at 43 %. Ejection Fraction is visually estimated to be 40-45 %. Global Longitudinal Strain is -4 %. GLS is abnormal. Apical Sparing Pattern seen with Strain Imaging, consider Cardiac Amyloid. There is severe enlargement of left atrium. Mild mitral annular calcification. Mild to moderate mitral valve regurgitation. Moderate aortic stenosis. Peak Velocity of 3.30 m/s. Mean gradient of 27.0 mmHg. Valve area of 1.1 cm2. Aortic cusps appear severely calcified. Trileaflet aortic valve. Mild to moderate aortic valve regurgitation. Moderate pulmonary hypertension based on right ventricular systolic pressure. Estimated peak RVSP is 45-50 mmHg. Mild tricuspid regurgitation. Mild pulmonic regurgitation. Ascending aorta is mildly dilated. Ascending Aorta 3.9 cm. Atrial fibrillation with rapid ventricular response throughout the entirety of the study. Electronically Signed By: Alex Jimenes MD 09/05/2024 12:54:08 PM CDT Procedure Note Alex Jimenes MD - 09/05/2024 [facility] Cardiology [address] [facility] [address], [place] [address] [address] [facility] [address], [place] [address] P:[phone] P:[phone] Echocardiographic Report Patient Name: BINH ADAN E : 1955 Study Date: 09/05/2024 9:24:54 AM Gender: M Marketing Support Assistant: Melissa Araya)(CT), [facility] Location: [facility] Provider: PRACHI GERMAIN Height(Cm): 183 BSA: 2.55 Weight(Kg): 127.5 Heart Rate: 127 BP: 124 / 81 Quality: Good Order Provider: PRACHI GERMAIN PROCEDURES: Echocardiographic Report: Transthoracic echocardiogram with complete 2D, M-Mode, and color Dopplerexamination. With Strain Analysis. INDICATIONS: I48.19 Other persistent atrial fibrillation. MEASUREMENTS: 2D/MM Value Range Doppler ValueRange EF Mod BP 43 % [ 52 - 72 ] LENA Vmax 1.12cm2 [ 2.00 - 4.00 ] Estimated EF 40-45 % AV Mean PG 27mmHg LV GLS -4.37 % AV Peak Henri 3.26m/s [ 1.00 - 1.70 ] LVIDd 2D 6.14 cm [ 4.20 - 5.80 ] AV Peak PG 42mmHg LVIDs 2D 4.81 cm [ 2.50 - 4.00 ] AV VTI 63.13cm LVPWd 2D 1.19 cm [ 0.60 - 1.00 ] LVOT Diam 2.07cm [ 1.70 - 2.10 ] IVSd 2D 1.16 cm [ 0.60 - 1.00 ] LVOT Peak Henri 1.08m/s [ 0.70 - 1.10 ] AoR Diam 2D 3.75 cm [ 3.10 - 3.70 ] LVOT VTI 24.09cm LA Volume 85.05 ml [ 18.00 - 58.00 ] PV Peak Henri 1.00m/s [ 0.40 - 0.80 ] LA Volume Index 33 cc/m2 [ 16 - 28 ] TR Peak Henri 2.73m/s [ 1.00 - 2.80 ] RA Volume 55.17 ml TR Peak PG 30mmHg RV S` 10.12 mmHg Tapse 2.26 cm [ 1.71 - 5.00 ] 2D/MM Value Range Doppler ValueRange - FINDINGS: Interpretation Site: Exam was interpreted at [facility]. Left Ventricle: Moderate concentric left ventricular hypertrophy. Moderate enlargement ofleft ventricle cavity. Moderate global left ventricular systolic dysfunction. Diastolicdysfunction is present. Ejection fraction is measured at 43 %. Ejection Fraction isvisually estimated to be 40-45 %. Global Longitudinal Strain is -4 %. GLS is abnormal. ApicalSparing Pattern seen with Strain Imaging, consider Cardiac Amyloid. Right Ventricle: Normal right ventricular size. Normal right ventricular systolicfunction. Left Atrium: There is severe enlargement of left atrium. Right Atrium: The right atrium is normal in size. Atrial Septum: Normal atrial septum. Mitral Valve: Mild mitral annular calcification. Mild to moderate mitral valveregurgitation. There is no hemodynamically significant mitral stenosis by Doppler. Aortic Valve: Moderate aortic stenosis. Peak Velocity of 3.30 m/s. Mean gradient of 27.0mmHg. Valve area of 1.1 cm2. Aortic cusps appear severely calcified. Trileaflet aorticvalve. Mild to moderate aortic valve regurgitation. Tricuspid Valve: Normal appearance of the tricuspid valve. Moderate pulmonary hypertensionbased on right ventricular systolic pressure. Estimated peak RVSP is 45-50 mmHg. Mildtricuspid regurgitation. Pulmonic Valve: Normal appearance of the pulmonic valve. No pulmonic stenosis. Mildpulmonic regurgitation. Pericardium: Normal pericardium with no significant pericardial effusion. Aorta: Ascending aorta is mildly dilated. Ascending Aorta 3.9 cm. IVC: Dilated IVC with respiratory collapse consistent with elevated rightatrial pressure (10-15 mmHg). CONCLUSIONS: Moderate concentric left ventricular hypertrophy. Moderate enlargement ofleft ventricle cavity. Moderate global left ventricular systolic dysfunction. Diastolicdysfunction is present. Ejection fraction is measured at 43 %. Ejection Fraction isvisually estimated to be 40-45 %. Global Longitudinal Strain is -4 %. GLS is abnormal. ApicalSparing Pattern seen with Strain Imaging, consider Cardiac Amyloid. There is severe enlargement of left atrium. Mild mitral annular calcification. Mild to moderate mitral valveregurgitation. Moderate aortic stenosis. Peak Velocity of 3.30 m/s. Mean gradient of 27.0mmHg. Valve area of 1.1 cm2. Aortic cusps appear severely calcified. Trileaflet aorticvalve. Mild to moderate aortic valve regurgitation. Moderate pulmonary hypertension based on right ventricular systolicpressure. Estimated peak RVSP is 45-50 mmHg. Mild tricuspid regurgitation. Mild pulmonic regurgitation. Ascending aorta is mildly dilated. Ascending Aorta 3.9 cm. Atrial fibrillation with rapid ventricular response throughout theentirety of the study. Electronically Signed By: Alex Jimenes MD 09/05/2024 12:54:08 PM CDT Prachi Germain NP CV ECHO PROCEDURES Final Result * Cardiology Document Scan (08/26/2024 4:01 PM CDT) Anatomical Region Laterality Modality Other Blanca Black NP CV CARDIAC SERVICES PROCEDUR ES Final Result * Cardiology Document Scan (08/25/2024 3:57 PM CDT) Anatomical Region Laterality Modality Other Blanca Black NP CV CARDIAC SERVICES PROCEDUR ES Final Result * SCAN - RADIOLOGY/IMAGING (08/25/2024) Anatomical Region Laterality Modality Other us Provider Scanning Final Result * SCAN - LABS (08/25/2024) us Provider Scanning Final Result * Cardiology Document Scan (08/25/2024) Anatomical Region Laterality Modality Other us Provider Scanning CV CARDIAC SERVICES PROCEDURES Final Result from Last 3 Months Additional Health Concerns Active Problems Noted Date Diagnosed Date Initial Follow-Up Appointment 10/21/2024 Barriers to Medication Adherence 10/21/2024 Infection Onset Date Last Indicated Ring Surveillance: C. auris Comment:[id number], swabs on Sunday10/18/2024 10/18/2024 Insurance [employer] [place] [facility] Advance Directives For more information, please contact: [phone] * Full Code (Latest Code Status on File) Date Activated Date Inactivated Comments 10/17/2024 10:41 PM 10/20/2024 9:41 PM * Full Code Date Activated Date Inactivated Comments 06/05/2022 1:19 PM 06/06/2022 4:07 PM * Full Code Date Activated Date Inactivated Comments 12/23/2021 6:20 PM 12/26/2021 12:49 AM Care Teams Chicken Fancier Relationship Specialty Start Date End Date Ozzie Burgos DO PCP - General Internal Medicine 09/01/24 Dilma Granados LCSW [address] [facility] ([facility]) Mailstop [phone] [place] [address] [facility] Outpatient Stage Hand 10/21/24
--- NOTE | 2024-10-24 11:33 | WPDPFTINT ---
PFT Procedure Performed PFT Procedure Performed Plethysmography (Lung Vol) Diffusing Cap (DLCO) Flow Vol Loop Spirometry w/o Bronchodil PFT Interpretation This is a pulmonary function test with spirometry, plethysmography and diffusing capacity. The test was performed and results interpreted in accordance with the 2019 and 2005 ATS/ERS Task Force guidelines respectively using the Global Lung Function Initiative-2012 reference equations. Patient demonstrated good effort and cooperation. Reproducibility criteria were met. The quality of the spirometry maneuver was Grade A. Findings: Spirometry: There is decreased maximal expiratory airflow at all lung volumes with concave expiratory flow tracing. The FVC is 2.94 L, 63% predicted. The FEV1 is 1.70 L, 49% predicted. The FEV1: FVC ratio is 58%. Plethysmography: The total lung capacity is 7.21 L, 97% predicted. The functional residual capacity is 4.45 L, 112% predicted. The residual volume is 4.26 L, 169% predicted. The residual volume: Total lung capacity ratio is 59%. Diffusing capacity: The diffusing capacity unadjusted for hemoglobin and carboxyhemoglobin is 19.3, 70% predicted. The diffusing capacity adjusted for alveolar volume is 3.74, 96% predicted. Impression: There is a severe obstructive abnormality. The increase in residual volume to total lung volume ratio is consistent with hyperinflation from an obstructive abnormality. The diffusing capacity unadjusted for hemoglobin and carboxyhemoglobin is mildly decreased and normalizes when adjusted for alveolar volume. There are no prior studies for comparison
== END 2024-10-24 07:50 | disposition home or self-care (01) ==
PROVIDERS: PCP Internal Medicine; Visit Provider Internal Medicine
DX: R06.02 Shortness of breath (principal)
CPT/HCPCS: 94375; 94726; 94729

== ENCOUNTER 2024-11-24 09:38 | Emergency (ER) | payer OTHER, SELFPAY ==
--- NOTE | 2024-11-24 09:56 | ED_ITS ---
HPI - CPR General Chief Complaint: Cardiac Arrest/CPR Stated Complaint: CARDIAC ARREST Time Seen by Provider: 11/24/24 09:38 History of Present Illness HPI narrative: Patient is a 69-year-old male who presents ER in cardiac arrest. He was found unresponsive in his vehicle outside of the local doctor's office after he dropped his off for a doctor's visit. His last known well was 8:50 a.m.. EMS arrived and patient was in VFib and received 1 shock. 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 Patient was intubated. No Accu-Chek was performed. Patient has been receiving epinephrine and has had 3 rounds upon arrival. Related Data Home Medications ?Medication ?Instructions ?Recorded ?Confirmed ?Last Taken ?Type multivitamin with minerals 1 tablet PO DAILY 02/01/23 10/27/24 Unknown History ascorbate calcium (vitamin C) 500 500 mg PO DAILY 10/0710/27/24 Unknown History mg tablet dofetilide 250 mcg capsule 250 mcg PO BID 10/27/24 Unknown History furosemide 40 mg tablet (Lasix) 40 mg PO QAM 10/27/24 10/27/24 Unknown History metoprolol succinate 100 mg 150 mg PO DAILY 10/27/24 0 10/27/24 Unknown History tablet,extended release 24 hr sacubitril 24 mg-valsartan 26 mg 1 tablet PO BID 10/2710/27/24 Unknown History tablet (Entresto) Allergies Allergy/AdvReac Type Severity Reaction Status Date / Time No Known Allergies Allergy Verified 10/27/24 11:03 Review of Systems Review of Systems: All systems reviewed & are unremarkable except as noted in HPI and below Constitutional: Constitutional: Reports no additional constitutional complaints Cardiovascular: Cardiovascular: Reports no additional cardiovascular complaints Respiratory: Respiratory: Reports no additional respiratory complaints Gastrointestinal: Gastrointestinal: Reports no additional gastrointestinal complaints Genitourinary: Genitourinary: Reports no additional male genitourinary complaints [facility] Past Medical History Medical History Dyslipidemia Chronic low back pain Foot drop, bilateral Peripheral neuropathy Hypertension Surgical History Surgical History History of basal cell carcinoma excision left ear History of arthroplasty of left knee History of right cataract extraction (08/2024) History of spinal surgery Family History Family History Father Hypertension Heart disease Mother Cancer Sibling No problems noted. Other Family history of malignant neoplasm of male breast Social History Social History Social History: Surrogate medical decision maker: Vandana Masters, spouse. Code status: Full code. Smoking packs per day: 2 Smoking cigarettes per day: 40.0 Years smoked: 30 Smoking pack-years: 60.00 Smoking status: Former smoker Tobacco type: cigarettes Second hand tobacco smoke exposure: Yes Smoking end date: 02/05/06 Alcohol intake: current Drinks per week: 8 Alcohol use details: occasional/social use (6-7 beers at a setting) Substance use: never Substance use type: does not use Other substance usage details: gummies for pain Do You Feel Safe in your Home?: Yes Lack of Transportation: No Lack of Food: Never True Current Housing: I Have Housing Concerned About Future Housing: No Difficulty Paying Gas/Electric Bills: No Difficulty Paying for Meds: No Currently Unemployed: No Education: High School Diploma/GED Difficulty w/ Childcare or Family Care: No Living arrangements: with family Additional living arrangements comments: Lives with in [place]. 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 HEAD: Normocephalic, atraumatic. EYES: Pupils equal round mid dilated, not reactive to light.. ENT: Mucous membranes moist. CHEST: Clear to auscultation. No respiratory effort, being bagged. HEART: central pulses present with CPR, poor cap refill. ABDOMEN: Soft, nontender, nondistended. EXTREMITIES: Normal range of motion. No edema. Right tibial IO. SKIN: Warm, cyanotic NEURO: GCS 3 Course Course Emergency Course: 1003: Multiple rounds of epinephrine, patient has been shocked x2 received amiodarone 150 mg. His Accu-Chek is 110. I have spoken with the patient's about his prolonged down time. She reports he would not want resuscitation. and other family into the room with me at pulse check where patient is in PEA arrest. Pronounced as at 0953. Released by corners office, Dr. Burgos will sign certificate. Discharge Plan Discharge Clinical Impression: Cardiopulmonary arrest Patient Disposition: Condition: Patient Language: Greek Prescriptions: No Action furosemide [Lasix] 40 mg tablet 40 mg PO QAM dofetilide 250 mcg capsule 250 mcg PO BID sacubitril-valsartan [Entresto] 24-26 mg tablet 1 tablet PO BID metoprolol succinate 100 mg tablet extended release 24 hr 150 mg PO DAILY ascorbate calcium (vitamin C) 500 mg tablet 500 mg PO DAILY multivitamin with minerals Tablet 1 tablet PO DAILY Eliquis 5 mg Tablet 5 mg PO Q12HR Qty: 60 0RF fenofibrate micronized 134 mg capsule 134 mg PO DAILY Qty: 90 3RF Patient Comments: Takes two times per week, on Sunday and ramelteon [Rozerem] 8 mg tablet 8 mg PO QHS Qty: 30 0RF Follow-up/Referrals: Ozzie Burgos DO [Primary Care Provider, Internal Medicine]
--- NOTE | 2024-11-24 10:30 | PCCCNOTE ---
Pt presented via EMS after spouse found him in their car, non responsive, after her appointment. CPR was started their and continued by EMS. Spouse, son, brother in law and sister present. Spouse stated they did not have any advanced directives but chose to stop resuscitation as she felt he would not want to continue with CPR and be on a vent. She requested [facility] in [place] to release the body to and form signed. Nursing staff to call ripshear operator and [facility].
--- NOTE | 2024-11-24 10:32 | PC.NURSE ---
pt had some agonal breathing, EDP Dr. Tolliver gave verbal order of 8mg of morphine. once about to administer, but had no more agonal breathing. 2 RNs wasted the morhphine
--- NOTE | 2024-11-24 12:09 | PC.NURSE ---
pt to removed by [facility], Then will go to home
== END 2024-11-24 09:53 | disposition expired ==
PROVIDERS: Emergency Provider Emergency Medicine; PCP Internal Medicine
DX: I46.9 Cardiac arrest, cause unspecified (principal); I10 Essential (primary) hypertension; E78.5 Hyperlipidemia, unspecified; M21.372 Foot drop, left foot; M21.371 Foot drop, right foot; G89.29 Other chronic pain
CPT/HCPCS: 82948; 92950; 99285; J0168; J0282; J2270